=== PATIENT | male | born 1970 | race Caucasian/White ===

== ENCOUNTER 2019-11-07 15:27 | Emergency (ER) | payer OTHER, SELFPAY ==
[2019-11-07 15:37] VITALS: BP 153/70; PULSE 81; RESP 16; TEMP 36.5; O2SAT 99
--- NOTE | 2019-11-07 16:53 | ED.EAR ---
HPI - Ear Problem General Chief complaint: Ear Stated complaint: left side ear pain/pressure/jaw pain Time Seen by Provider: 11/07/19 16:53 Source: patient Mode of arrival: ambulatory Limitations: no limitations History of Present Illness HPI Narrative: Macario Pastrana is a 49-year-old male with a PMH of hypercholesterol [facility] for complaints of left ear pain and teeth pain along with pain behind and below his ear; it is existed for the last 2 days but is worsened as time progressed. States used 's lidocaine gargle last night and got relief Related Data Home Medications Medication Instructions Recorded Confirmed Fish Oil 11/07/19 Vitamin D3 11/07/19 simvastatin 11/07/19 Allergies Allergy/AdvReac Type Severity Reaction Status Date / Time Penicillins Allergy Severe HIVES Verified 11/07/19 16:55 Review of Systems Review of Systems: Narrative: CONSTITUTIONAL: Denies fever, chills, sweats. EYES: Denies visual changes, redness, discharge. ENT: Denies rhinorrhea, congestion, sore throat, L otalgia. Pain behind ear along TMJ into gums CARDIOVASCULAR: Denies chest pain, palpitations, edema. RESPIRATORY: Denies dyspnea, wheezing, cough GASTROINTESTINAL: Denies abdominal pain, nausea, vomiting, diarrhea. GENITOURINARY: Denies dysuria, hematuria, abnormal discharge SKIN: Denies rash or itching. NEUROLOGIC: Denies numbness, or focal weakness. PSYCHIATRIC: Denies anxiety or depression. [facility] Family History Family History Other Diabetes mellitus Heart disease High cholesterol Hypertension Social History Social History Smoking status: Never smoker Alcohol intake: current Exam Narrative: Exam Narrative: GENERAL: This is a well-nourished, well-developed patient, in moderate distress. HEAD: normocephalic, atraumatic. EYES: Sclera clear/white. Vision is grossly intact. EARS: External ears normal, auditory canal clear and left canal erythema with edema without drainage, Hearing grossly intact. NOSE: External nose normal without nasal discharge, nares without redness, no rhinorrhea. THROAT: Mucous membranes moist, posterior pharynx erythema NECK: Neck supple, submandibular tenderness on the left and along TMJ CARDIOVASCULAR: Regular rate and rhythm without murmurs, gallops, or rubs. RESPIRATORY: Clear to auscultation. Breath sounds equal bilaterally. No wheezes, rales, or rhonchi. GASTROINTESTINAL: Abdomen soft, SKIN: warm, intact with no suspicious lesions or rash, good texture and turgor. NEURO: awake, alert, and oriented to person, place and time. There were no obvious focal neurologic abnormalities. Steady gait EXTREMITIES: Normal range of motion. BACK: Nontender without deformity Course Course Emergency Course: Started on clindamycin and viscous lidocaine Follow-up with PCP Vital Signs Vital signs: Vital Signs Temperature 97.7 F 11/07/19 15:37 Pulse Rate 81 11/07/19 15:37 Respiratory Rate 16 11/07/19 15:37 Blood Pressure 153/70 H 11/07/19 15:37 Pulse Oximetry 99 11/07/19 15:37 Temperature 97.7 F 11/07/19 15:37 Pulse Rate 81 11/07/19 15:37 Respiratory Rate 16 11/07/19 15:37 Blood Pressure 153/70 H 11/07/19 15:37 Pulse Oximetry 99 11/07/19 15:37 Medical Decision Making Differential Diagnosis Differential Diagnosis: Otitis media versus dental caries versus TMJ Vital Signs Vital Signs: Vital Signs Temperature 97.7 F 11/07/19 15:37 Pulse Rate 81 11/07/19 15:37 Respiratory Rate 16 11/07/19 15:37 Blood Pressure 153/70 H 11/07/19 15:37 Pulse Oximetry 99 11/07/19 15:37 Temperature 97.7 F 11/07/19 15:37 Pulse Rate 81 11/07/19 15:37 Respiratory Rate 16 11/07/19 15:37 Blood Pressure 153/70 H 11/07/19 15:37 Pulse Oximetry 99 11/07/19 15:37 Discharge Plan Discharge Clinical Impression:
== END 2019-11-07 17:20 | disposition home or self-care (01) ==
PROVIDERS: Emergency Provider Nurse Practitioner; PCP Internal Medicine
DX: H92.02 Otalgia, left ear (principal); R59.9 Enlarged lymph nodes, unspecified; E78.00 Pure hypercholesterolemia, unspecified
CPT/HCPCS: 99213; G0463

== ENCOUNTER 2024-05-31 04:30 | Emergency (ER) | payer OTHER, SELFPAY ==
[2024-05-31] VITALS (12 sets, daily range): BP systolic 130–154; BP diastolic 85–105; PULSE 74–102; RESP 12–19; TEMP 36.8; O2SAT 94–100
--- NOTE | ~2024-05-31 | XR_ITS ---
CHEST RADIOGRAPH CLINICAL HISTORY: N/V/D . COMPARISON: None available TECHNIQUE: Single portable view of the chest. FINDINGS The cardiomediastinal silhouette is unremarkable. Hazy opacification of the left hemidiaphragm suggesting a small left-sided pleural effusion. The remainder the lungs are clear Visualized osseous structures and soft tissues are unremarkable. IMPRESSION: Small left-sided pleural effusion without focal infiltrate. Reviewed, dictated and finalized at location A. [facility]
--- NOTE | 2024-05-31 04:43 | ECG_ITS ---
Test Date: 2024-05-31 04:48:23 Measurements Intervals [place] Rate: 73 P: 27 WV: 183 QRS: -2 QRSD: 101 T: 41 QT: 368 QTc: 408 Interpretive Statements SINUS RHYTHM MINIMAL VOLTAGE CRITERIA FOR LVH, CONSIDER NORMAL VARIANT [MEETS CRITERIA IN ONE OF: R(aVL), S(V1), R(V5), R(V5/V6)+S(V1)] NONSPECIFIC T-WAVE ABNORMALITY No previous ECG available for comparison Electronically Signed On 05-31-2024 10:06:47 [employer] by Yuri Calderon M.D.
[2024-05-31 04:52] LABS: Glucose Point of Care 300 mg/dl (65-105)
[2024-05-31] MEDS: SODIUM CHLORIDE 0.9% IV 1,000 ML 999 ML IV CONT (04:56)
[2024-05-31] MEDS: ONDANSETRON INJ 4 MG/2 ML VIAL IV PUSH (04:56)
[2024-05-31 04:59] LABS: Basophils Absolute Auto 0.1 K/mm3 (0.0-0.1); Eosinophils Absolute Auto 0.1 K/mm3 (0-0.3); Eosinophils Percent Auto 1.8 % (0-4.4); Hemoglobin 16.3 g/dL (14.0-18.0); Immature Granulocyte Absolute 0.04 K/mm3 (0.00-0.031); Immature Granulocyte Percent A 0.6 % (0-0.5); Immature Platelet Fraction Pct 7.7 % (0.9-11.2); Lymphocytes Absolute Auto 1.83 K/mm3 (0.9-3.2); Lymphocytes Percent Auto 27.2 % (18.3-44.2); Mean Corpuscular HGB Conc 35.4 g/dl (32-36); Mean Corpuscular Hemoglobin 29.5 pg (26-34); Mean Corpuscular Volume 83.3 fl (80-100); Mean Platelet Volume 11.1 fl (7.4-10.4); Monocytes Absolute Auto 0.6 K/mm3 (0.1-0.6); Monocytes Percent Auto 8.3 % (2.6-8.5); Neutrophils Absolute Auto 4.1 K/mm3 (1.3-6.7); Neutrophils Percent Auto 61.1 % (45.5-73.1); Platelet Count Result 214 k/mm3 (150-375); Red Blood Count 5.52 M/mm3 (4.6-6.20); Red Cell Distribution Width 12.1 % (11.5-14.5); White Blood Count 6.7 K/mm3 (4.5-10.0)
[2024-05-31 05:06] LABS: Fractional Inspired Oxygen 21 %; HCO3 VBG 22.2 mEq/l (24.0-30.0); PCO2 VBG 36.8 mmHg (42.0-48.0); PO2 VBG 88.1 mmHg (35.0-45.0); pH VBG 7.398 (7.300-7.400)
[2024-05-31 05:07] LABS: Device ROOM AIR
[2024-05-31 05:10] LABS: Alanine Aminotransferase 41 U/L (6-50); Albumin Level 4.5 g/dL (3.5-5.1); Alkaline Phosphatase 77 U/L (38-126); Anion Gap 10 mmol/L (4-12); Aspartate Amino Transferase 41 U/L (17-59); Blood Urea Nitrogen 20 mg/dL (9-20); Calcium 9.5 mg/dL (8.4-10.2); Carbon Dioxide 24 mmol/L (22-30); Chloride 100 mmol/L (98-107); Estimated CRCL calculation 95 ml/min; Estimated Glomerular Filt Rate > 60; Glucose 303 mg/dL (65-110); Magnesium 1.7 mg/dL (1.6-2.3); Potassium 4.1 mmol/L (3.4-5.0); Sodium 134 mmol/L (137-145)
[2024-05-31 05:13] LABS: Beta-Hydroxybutyrate/Acetoacetate 0.56 mmol/L (0.02-0.27)
[2024-05-31 05:39] LABS: Influenza A QL RT-PCR Negative (Negative); Influenza B QL RT-PCR Negative (Negative); RSV RNA, RT-PCR Negative (Negative); SARS-CoV-2 RNA PCR Negative (Negative)
[2024-05-31 06:19] LABS: Troponin I 0.018 ng/mL (0.000-0.034)
--- NOTE | 2024-05-31 06:30 | ED_ITS ---
HPI - General Adult General Chief complaint: Recheck/Abnormal Lab/Rx <Kwadwo Bond MD - Last Filed: 05/31/24 06:48> Stated complaint: Recent dx of DM, vomiting <Kwadwo Bond MD - Last Filed: 05/31/24 06:48> Time Seen by Provider: 05/31/24 04:46 <Kwadwo Bond MD - Last Filed: 05/31/24 06:48> History of Present Illness HPI narrative: This is a 54-year-old male presenting ED with chief complaint of vomiting. Patient has recently been diagnosed with diabetes. He has had his metformin increased from once daily to 500 mg t.i.d. with meals. He has also been started on 20 units of Lantus. Patient started to feel nauseous at 2:30 a.m. this morning with a feeling of indigestion in his chest. He had an episode of vomiting. no diarrhea. He then came to the hospital for evaluation. He was concerned about DKA. Patient is very anxious. patient denies fevers chills, productive cough, abdominal pain shortness of breath or urinary symptoms. <Kwadwo Bond MD - Last Filed: 05/31/24 06:48> Related Data Home medications: Home Medications ?Medication ?Instructions ?Recorded ?Confirmed ?Last Taken ?Type Fish Oil 11/07/19 Unknown History Vitamin D3 11/07/19 Unknown History simvastatin 11/07/19 Unknown History <Kwadwo Bond MD - Last Filed: 05/31/24 06:48> Allergies/adverse reactions: Allergies Allergy/AdvReac Type Severity Reaction Status Date / Time Penicillins Allergy Severe HIVES Verified 11/07/19 16:55 <Kwadwo Bond MD - Last Filed: 05/31/24 06:48> Review of Systems 2 Review of Systems: All systems reviewed & are unremarkable except as noted in HPI and below <Clem Lang MD - Last Filed: 05/31/24 14:45> PMFSH Past Medical History Medical History: Medical History High cholesterol HTN (hypertension) <Kwadwo Bond MD - Last Filed: 05/31/24 06:48> Family History Family History: Family History Other Diabetes mellitus Heart disease High cholesterol Hypertension <Kwadwo Bond MD - Last Filed: 05/31/24 06:48> Social History Social History: Social History Smoking status: Never smoker Alcohol intake: current Gender identity (if verbalized by the patient): Male <Kwadwo Bond MD - Last Filed: 05/31/24 06:48> Exam 2 Narrative: APPEARANCE: No apparent distress. anxious. Head: atraumatic. EYES: EOMI, NOSE: Atraumatic NECK: Trachea midline RESPIRATORY: No increased rate of breathing CTAB CARDIOVASCULAR: RRR, no peripheral edema ABDOMINAL: Non-distended soft nontender no guarding rebound MUSCULOSKELETAl: No obvious deformities NEURO: Alert. Moving 4/4 extremities SKIN:: Warm, dry. Normal color PSYCHIATRIC: Normal affect <Kwadwo Bond MD - Last Filed: 05/31/24 06:48> Course Reevaluation(s) Reevaluation #1: Patient care was signed out to me by the overnight physician with a delta troponin pending. Patient was afebrile with no leukocytosis and hemoglobin of 16.3. Patient's repeat troponin was less than 0.012. No acute abnormalities on the patient's repeat EKG. Patient was instructed have close follow-up with his primary care physicians regarding better control over his blood sugar. All questions concerns were addressed. Patient was well-appearing at time of discharge. <Clem Lang MD - Last Filed: 05/31/24 14:45> Vital Signs Vital signs: Vital Signs Temperature 98.2 F 05/31/24 04:38 Pulse Rate 80 05/31/24 04:38 Respiratory Rate 19 05/31/24 04:38 Blood Pressure 144/105 H 05/31/24 04:38 Pulse Oximetry 94 05/31/24 04:38 Oxygen Delivery Room Air 05/31/24 04:38 Temperature 98.2 F 05/31/24 04:38 Pulse Rate 92 05/31/24 09:16 Respiratory Rate 12 05/31/24 09:16 Blood Pressure 130/86 05/31/24 09:16 Pulse Oximetry 99 05/31/24 09:16 Oxygen Delivery Room Air 05/31/24 04:38 <Kwadwo Bond MD - Last Filed: 05/31/24 06:48> Vital Signs Temperature 98.2 F 05/31/24 04:38 Pulse Rate 80 05/31/24 04:38 Respiratory Rate 19 05/31/24 04:38 Blood Pressure 144/105 H 05/31/24 04:38 Pulse Oximetry 94 05/31/24 04:38 Oxygen Delivery Room Air 05/31/24 04:38 Temperature 98.2 F 05/31/24 04:38 Pulse Rate 92 05/31/24 09:16 Respiratory Rate 12 05/31/24 09:16 Blood Pressure 130/86 05/31/24 09:16 Pulse Oximetry 99 05/31/24 09:16 Oxygen Delivery Room Air 05/31/24 04:38 <Clem Lang MD - Last Filed: 05/31/24 14:45> Medical Decision Making MDM Narrative Medical decision making narrative: -Course: 54-year-old male ED with chief complaint nausea, vomiting and indigestion. patient's GI discomfort and indigestion could be due to his increased metformin vs gastroenteritis vs anxiety. When he says indigestion he keeps pointing at his chest so I wanted to get a troponin/EKG to r/o ACS syndrome. Initial troponin was 0.018. no ischemic changes on initial EKG Second troponin is pending at time of sign-out. If ACS is ruled out patient can be discharged with antiemetics and Pepcid. Primary care follow-up. -DDX includes but is not limited to: Medication side effect, gastroenteritis, ACS -Co-morbidities complicating care: diabetes, high cholesterol -Independent interpretation of studies: labs and imaging initial troponin 0.018, 2nd is pending Independent EKG interpretation: Rhythm [sinus], Rate [73], [place] -[normal], [place] -[normal], QRS [narrow], QTC [normal], T waves -[negative for concerning inversions], ST Segments - [Negative for concerning elevations] Final interpretations: [Normal Sinus Rhythm] -Interventions:Valium, Maalox, normal saline -Shared decision making / Disposition:signed out. <Kwadwo Bond MD - Last Filed: 05/31/24 06:48> Vital Signs Vital Signs: Vital Signs Temperature 98.2 F 05/31/24 04:38 Pulse Rate 80 05/31/24 04:38 Respiratory Rate 19 05/31/24 04:38 Blood Pressure 144/105 H 05/31/24 04:38 Pulse Oximetry 94 05/31/24 04:38 Oxygen Delivery Room Air 05/31/24 04:38 Temperature 98.2 F 05/31/24 04:38 Pulse Rate 92 05/31/24 09:16 Respiratory Rate 12 05/31/24 09:16 Blood Pressure 130/86 05/31/24 09:16 Pulse Oximetry 99 05/31/24 09:16 Oxygen Delivery Room Air 05/31/24 04:38 <Kwadwo Bond MD - Last Filed: 05/31/24 06:48> Vital Signs Temperature 98.2 F 05/31/24 04:38 Pulse Rate 80 05/31/24 04:38 Respiratory Rate 19 05/31/24 04:38 Blood Pressure 144/105 H 05/31/24 04:38 Pulse Oximetry 94 05/31/24 04:38 Oxygen Delivery Room Air 05/31/24 04:38 Temperature 98.2 F 05/31/24 04:38 Pulse Rate 92 05/31/24 09:16 Respiratory Rate 12 05/31/24 09:16 Blood Pressure 130/86 05/31/24 09:16 Pulse Oximetry 99 05/31/24 09:16 Oxygen Delivery Room Air 05/31/24 04:38 <Clem Lang MD - Last Filed: 05/31/24 14:45> Lab Data Result diagrams: 05/31/24 04:50 05/31/24 04:50 <Kwadwo Bond MD - Last Filed: 05/31/24 06:48> Labs: Lab Results 05/31/24 05/31/24 05/31/24 Range/Units 04:37 04:49 04:50 WBC 6.7 (4.5-10.0) K/mm3 RBC 5.52 (4.6-6.20) M/mm3 Hgb 16.3 (14.0-18.0) g/dL Hct 46.0 (42.0-52.0) % MCV 83.3 (80-100) fl MCH 29.5 (26-34) pg MCHC 35.4 (32-36) g/dl RDW 12.1 (11.5-14.5) % Plt Count 214 (150-375) k/mm3 MPV 11.1 H (7.4-10.4) fl Immature Gran % (Auto) 0.6 H (0-0.5) % Neut % (Auto) 61.1 (45.5-73.1) % Lymph % (Auto) 27.2 (18.3-44.2) % [place] % (Auto) 8.3 (2.6-8.5) % Eos % (Auto) 1.8 (0-4.4) % Baso % (Auto) 1.0 (0.2-1.2) % Lymph # (Auto) 1.83 (0.9-3.2) K/mm3 [place] # (Auto) 0.6 (0.1-0.6) K/mm3 Eos # (Auto) 0.1 (0-0.3) K/mm3 Baso # (Auto) 0.1 (0.0-0.1) K/mm3 Abs Immat Gran (auto) 0.04 H (0.00-0.031) K/mm3 Absolute Neuts (auto) 4.1 (1.3-6.7) K/mm3 Absolute Nucleated RBC 0.000 (0.0-0.012) K/mm3 Nucleated RBC % 0.0 (0.0-0.2) % % Immature Plt Fraction 7.7 (0.9-11.2) % Sodium 134 L (137-145) mmol/L Potassium 4.1 (3.4-5.0) mmol/L Chloride 100 (98-107) mmol/L Carbon Dioxide 24 (22-30) mmol/L Anion Gap 10 (4-12) mmol/L BUN 20 (9-20) mg/dL Creatinine 0.86 (0.7-1.3) mg/dL Estim Creat Clear Calc 95 ml/min Estimated GFR > 60 (59 - ) Glucose 303 H (65-110) mg/dL POC Capillary Glucose 300 H (65-105) mg/dl Calcium 9.5 (8.4-10.2) mg/dL Phosphorus 3.0 (2.5-4.5) mg/dL Magnesium 1.7 (1.6-2.3) mg/dL Total Bilirubin 1.0 (0.2-1.3) mg/dL AST 41 (17-59) U/L ALT 41 (6-50) U/L Alkaline Phosphatase 77 (38-126) U/L Troponin I 0.018 (0.000-0.034) ng/mL Total Protein 7.0 (6.3-8.2) g/dL Albumin 4.5 (3.5-5.1) g/dL Beta-Hydroxybutyrate/Acetoacetate 0.56 H (0.02-0.27) mmol/L Urine Color (Yellow) Urine Appearance (Clear) Urine pH (5.0-9.0) Ur Specific [place] (1.001-1.035) Urine Protein (Negative) mg/dL Urine Glucose (UA) (Negative) mg/dL Urine Ketones (Negative) mg/dL Ur Blood (Man) (Negative) Urine Nitrate (Negative) Urine Bilirubin (Negative) Urine Urobilinogen (<2.0) mg/dL Leukocyte Esterase Rfl (Negative) ADRIÁN/UL Urine RBC (0-2) /hpf Urine WBC (0-3) /hpf Ur Squamous Epith Cells (Few) /hpf Urine Bacteria /hpf Urine Casts Influenza A (RT-PCR) (Negative) Influenza B (RT-PCR) (Negative) RSV (RT-PCR) (Negative) SARS-CoV-2 RNA (RT-PCR) (Negative) 05/31/24 05/31/24 05/31/24 Range/Units 04:55 07:25 07:49 WBC (4.5-10.0) K/mm3 RBC (4.6-6.20) M/mm3 Hgb (14.0-18.0) g/dL Hct (42.0-52.0) % MCV (80-100) fl MCH (26-34) pg MCHC (32-36) g/dl RDW (11.5-14.5) % Plt Count (150-375) k/mm3 MPV (7.4-10.4) fl Immature Gran % (Auto) (0-0.5) % Neut % (Auto) (45.5-73.1) % Lymph % (Auto) (18.3-44.2) % [place] % (Auto) (2.6-8.5) % Eos % (Auto) (0-4.4) % Baso % (Auto) (0.2-1.2) % Lymph # (Auto) (0.9-3.2) K/mm3 [place] # (Auto) (0.1-0.6) K/mm3 Eos # (Auto) (0-0.3) K/mm3 Baso # (Auto) (0.0-0.1) K/mm3 Abs Immat Gran (auto) (0.00-0.031) K/mm3 Absolute Neuts (auto) (1.3-6.7) K/mm3 Absolute Nucleated RBC (0.0-0.012) K/mm3 Nucleated RBC % (0.0-0.2) % % Immature Plt Fraction (0.9-11.2) % Sodium (137-145) mmol/L Potassium (3.4-5.0) mmol/L Chloride (98-107) mmol/L Carbon Dioxide (22-30) mmol/L Anion Gap (4-12) mmol/L BUN (9-20) mg/dL Creatinine (0.7-1.3) mg/dL Estim Creat Clear Calc ml/min Estimated GFR (59 - ) Glucose (65-110) mg/dL POC Capillary Glucose (65-105) mg/dl Calcium (8.4-10.2) mg/dL Phosphorus (2.5-4.5) mg/dL Magnesium (1.6-2.3) mg/dL Total Bilirubin (0.2-1.3) mg/dL AST (17-59) U/L ALT (6-50) U/L Alkaline Phosphatase (38-126) U/L Troponin I < 0.012 D (0.000-0.034) ng/mL Total Protein (6.3-8.2) g/dL Albumin (3.5-5.1) g/dL Beta-Hydroxybutyrate/Acetoacetate (0.02-0.27) mmol/L Urine Color Yellow (Yellow) Urine Appearance Clear (Clear) Urine pH 5.5 (5.0-9.0) Ur Specific [place] 1.027 (1.001-1.035) Urine Protein Negative (Negative) mg/dL Urine Glucose (UA) 3+ H (Negative) mg/dL Urine Ketones 1+ H (Negative) mg/dL Ur Blood (Man) Negative (Negative) Urine Nitrate Negative (Negative) Urine Bilirubin Negative (Negative) Urine Urobilinogen 0.2 (<2.0) mg/dL Leukocyte Esterase Rfl Negative (Negative) ADRIÁN/UL Urine RBC 0-2 (0-2) /hpf Urine WBC 0-5 (0-3) /hpf Ur Squamous Epith Cells None seen (Few) /hpf Urine Bacteria None seen /hpf Urine Casts 0-2 Influenza A (RT-PCR) Negative (Negative) Influenza B (RT-PCR) Negative (Negative) RSV (RT-PCR) Negative (Negative) SARS-CoV-2 RNA (RT-PCR) Negative (Negative) <Kwadwo Bond MD - Last Filed: 05/31/24 06:48> Lab Results 05/31/24 05/31/24 05/31/24 Range/Units 04:37 04:49 04:50 WBC 6.7 (4.5-10.0) K/mm3 RBC 5.52 (4.6-6.20) M/mm3 Hgb 16.3 (14.0-18.0) g/dL Hct 46.0 (42.0-52.0) % MCV 83.3 (80-100) fl MCH 29.5 (26-34) pg MCHC 35.4 (32-36) g/dl RDW 12.1 (11.5-14.5) % Plt Count 214 (150-375) k/mm3 MPV 11.1 H (7.4-10.4) fl Immature Gran % (Auto) 0.6 H (0-0.5) % Neut % (Auto) 61.1 (45.5-73.1) % Lymph % (Auto) 27.2 (18.3-44.2) % [place] % (Auto) 8.3 (2.6-8.5) % Eos % (Auto) 1.8 (0-4.4) % Baso % (Auto) 1.0 (0.2-1.2) % Lymph # (Auto) 1.83 (0.9-3.2) K/mm3 [place] # (Auto) 0.6 (0.1-0.6) K/mm3 Eos # (Auto) 0.1 (0-0.3) K/mm3 Baso # (Auto) 0.1 (0.0-0.1) K/mm3 Abs Immat Gran (auto) 0.04 H (0.00-0.031) K/mm3 Absolute Neuts (auto) 4.1 (1.3-6.7) K/mm3 Absolute Nucleated RBC 0.000 (0.0-0.012) K/mm3 Nucleated RBC % 0.0 (0.0-0.2) % % Immature Plt Fraction 7.7 (0.9-11.2) % Sodium 134 L (137-145) mmol/L Potassium 4.1 (3.4-5.0) mmol/L Chloride 100 (98-107) mmol/L Carbon Dioxide 24 (22-30) mmol/L Anion Gap 10 (4-12) mmol/L BUN 20 (9-20) mg/dL Creatinine 0.86 (0.7-1.3) mg/dL Estim Creat Clear Calc 95 ml/min Estimated GFR > 60 (59 - ) Glucose 303 H (65-110) mg/dL POC Capillary Glucose 300 H (65-105) mg/dl Calcium 9.5 (8.4-10.2) mg/dL Phosphorus 3.0 (2.5-4.5) mg/dL Magnesium 1.7 (1.6-2.3) mg/dL Total Bilirubin 1.0 (0.2-1.3) mg/dL AST 41 (17-59) U/L ALT 41 (6-50) U/L Alkaline Phosphatase 77 (38-126) U/L Troponin I 0.018 (0.000-0.034) ng/mL Total Protein 7.0 (6.3-8.2) g/dL Albumin 4.5 (3.5-5.1) g/dL Beta-Hydroxybutyrate/Acetoacetate 0.56 H (0.02-0.27) mmol/L Urine Color (Yellow) Urine Appearance (Clear) Urine pH (5.0-9.0) Ur Specific [place] (1.001-1.035) Urine Protein (Negative) mg/dL Urine Glucose (UA) (Negative) mg/dL Urine Ketones (Negative) mg/dL Ur Blood (Man) (Negative) Urine Nitrate (Negative) Urine Bilirubin (Negative) Urine Urobilinogen (<2.0) mg/dL Leukocyte Esterase Rfl (Negative) ADRIÁN/UL Urine RBC (0-2) /hpf Urine WBC (0-3) /hpf Ur Squamous Epith Cells (Few) /hpf Urine Bacteria /hpf Urine Casts Influenza A (RT-PCR) (Negative) Influenza B (RT-PCR) (Negative) RSV (RT-PCR) (Negative) SARS-CoV-2 RNA (RT-PCR) (Negative) 05/31/24 05/31/24 05/31/24 Range/Units 04:55 07:25 07:49 WBC (4.5-10.0) K/mm3 RBC (4.6-6.20) M/mm3 Hgb (14.0-18.0) g/dL Hct (42.0-52.0) % MCV (80-100) fl MCH (26-34) pg MCHC (32-36) g/dl RDW (11.5-14.5) % Plt Count (150-375) k/mm3 MPV (7.4-10.4) fl Immature Gran % (Auto) (0-0.5) % Neut % (Auto) (45.5-73.1) % Lymph % (Auto) (18.3-44.2) % [place] % (Auto) (2.6-8.5) % Eos % (Auto) (0-4.4) % Baso % (Auto) (0.2-1.2) % Lymph # (Auto) (0.9-3.2) K/mm3 [place] # (Auto) (0.1-0.6) K/mm3 Eos # (Auto) (0-0.3) K/mm3 Baso # (Auto) (0.0-0.1) K/mm3 Abs Immat Gran (auto) (0.00-0.031) K/mm3 Absolute Neuts (auto) (1.3-6.7) K/mm3 Absolute Nucleated RBC (0.0-0.012) K/mm3 Nucleated RBC % (0.0-0.2) % % Immature Plt Fraction (0.9-11.2) % Sodium (137-145) mmol/L Potassium (3.4-5.0) mmol/L Chloride (98-107) mmol/L Carbon Dioxide (22-30) mmol/L Anion Gap (4-12) mmol/L BUN (9-20) mg/dL Creatinine (0.7-1.3) mg/dL Estim Creat Clear Calc ml/min Estimated GFR (59 - ) Glucose (65-110) mg/dL POC Capillary Glucose (65-105) mg/dl Calcium (8.4-10.2) mg/dL Phosphorus (2.5-4.5) mg/dL Magnesium (1.6-2.3) mg/dL Total Bilirubin (0.2-1.3) mg/dL AST (17-59) U/L ALT (6-50) U/L Alkaline Phosphatase (38-126) U/L Troponin I < 0.012 D (0.000-0.034) ng/mL Total Protein (6.3-8.2) g/dL Albumin (3.5-5.1) g/dL Beta-Hydroxybutyrate/Acetoacetate (0.02-0.27) mmol/L Urine Color Yellow (Yellow) Urine Appearance Clear (Clear) Urine pH 5.5 (5.0-9.0) Ur Specific [place] 1.027 (1.001-1.035) Urine Protein Negative (Negative) mg/dL Urine Glucose (UA) 3+ H (Negative) mg/dL Urine Ketones 1+ H (Negative) mg/dL Ur Blood (Man) Negative (Negative) Urine Nitrate Negative (Negative) Urine Bilirubin Negative (Negative) Urine Urobilinogen 0.2 (<2.0) mg/dL Leukocyte Esterase Rfl Negative (Negative) ADRIÁN/UL Urine RBC 0-2 (0-2) /hpf Urine WBC 0-5 (0-3) /hpf Ur Squamous Epith Cells None seen (Few) /hpf Urine Bacteria None seen /hpf Urine Casts 0-2 Influenza A (RT-PCR) Negative (Negative) Influenza B (RT-PCR) Negative (Negative) RSV (RT-PCR) Negative (Negative) SARS-CoV-2 RNA (RT-PCR) Negative (Negative) <Clem Lang MD - Last Filed: 05/31/24 14:45> ABG Data ABG results: 05/31/24 04:50 VBG pH 7.398 VBG pCO2 36.8 L VBG pO2 88.1 H VBG HCO3 22.2 L O2 Delivery Device Room air O2 Liters/Min Not Reportable FiO2 21 <Kwadwo Bond MD - Last Filed: 05/31/24 06:48> 05/31/24 04:50 VBG pH 7.398 VBG pCO2 36.8 L VBG pO2 88.1 H VBG HCO3 22.2 L O2 Delivery Device Room air O2 Liters/Min Not Reportable FiO2 21 <Clem Lang MD - Last Filed: 05/31/24 14:45> Discharge Plan Discharge Clinical Impression: Nausea & vomiting, Indigestion, Anxiety <Kwadwo Bond MD - Last Filed: 05/31/24 06:48> Patient Disposition: Home, Self-Care <Kwadwo Bond MD - Last Filed: 05/31/24 06:48> Condition: Stable <Kwadwo Bond MD - Last Filed: 05/31/24 06:48> Instructions: Antibiotic Form, Acute Nausea and Vomiting (DC) <Kwadwo Bond MD - Last Filed: 05/31/24 06:48> Additional Instructions: You were seen in the emergency department for nausea and vomiting. Please use Zofran and Pepcid for nausea. Please follow-up with your primary care physician to discuss your recent diagnosis of diabetes. You can return to the ED at any time he develops severe abdominal pain, intractable nausea vomiting or any new or worsening symptoms. <Kwadwo Bond MD - Last Filed: 05/31/24 06:48> Patient Language: German <Kwadwo Bond MD - Last Filed: 05/31/24 06:48> Prescriptions: New ondansetron 4 mg tablet,disintegrating 4 mg PO Q8H PRN (Reason: nausea and vomiting) Qty: 30 0RF famotidine [Pepcid] 20 mg tablet 20 mg PO BID 42 Days Qty: 84 0RF No Action Fish Oil Vitamin D3 simvastatin Lidocaine Viscous 2 % solution 1 applic MUCOUS MEM TID PRN (Reason: pain) Qty: 100 0RF clindamycin HCl 300 mg capsule 300 mg PO Q8H Qty: 21 0RF <Kwadwo Bond MD - Last Filed: 05/31/24 06:48> Follow-up/Referrals: Dorita,John Coto MD [Primary Care Provider] - <Kwadwo Bond MD - Last Filed: 05/31/24 06:48> Quality HEART score for chest pain patients History: slightly suspicious <Clem Lang MD - Last Filed: 05/31/24 14:45> ECG: normal <Clme Lang MD - Last Filed: 05/31/24 14:45> Age: > 45 and < 65 years <Clem Lang MD - Last Filed: 05/31/24 14:45> Risk factors: 1 or 2 risk factors <Clem Lang MD - Last Filed: 05/31/24 14:45> Troponin: < or = to 1x normal limit <Clem Lang MD - Last Filed: 05/31/24 14:45> Heart score: 2 <Clem Lang MD - Last Filed: 05/31/24 14:45>
[2024-05-31] MEDS: MAG HYDROX/AL HYDROX/SIMETH 30 ML UDC PO (06:50)
--- NOTE | 2024-05-31 06:56 | PC.NURSE ---
pt refused valium medication at this time. this rn educated patient on the benefits of recieving medication. pt refused medication at this time.
[2024-05-31 07:37] LABS: Bacteria Urine None Seen /hpf; Non Pathogenic Casts 0-2; RBC Urine 0-2 /hpf (0-2); Squamous Epithelial Cell Urine None Seen /hpf (Few); WBC Urine 0-5 /hpf (0-3)
[2024-05-31 07:42] LABS: Add Urine Microscopic? NO; Appearance Urine Clear (Clear); Bilirubin Urine Negative (Negative); Blood Urine Negative (Negative); Color Urine Yellow (Yellow); Glucose Urine UA 3+ mg/dL (Negative); Ketones Urine 1+ mg/dL (Negative); Leukocyte Esterase Ur Negative LEU/UL (Negative); Nitrate Urine Negative (Negative); Protein Urine Negative (Negative); Specific Grav Ur 1.027 (1.001-1.035); Urobilinogen Urine 0.2 mg/dL (<2.0); pH Urine 5.5 (5.0-9.0)
--- NOTE | 2024-05-31 07:51 | ECG_ITS ---
Test Date: 2024-05-31 04:49:13 Measurements Intervals [place] Rate: 74 P: 24 MS: 186 QRS: -3 QRSD: 96 T: 33 QT: 371 QTc: 412 Interpretive Statements SINUS RHYTHM MINIMAL VOLTAGE CRITERIA FOR LVH, CONSIDER NORMAL VARIANT [MEETS CRITERIA IN ONE OF: R(aVL), S(V1), R(V5), R(V5/V6)+S(V1)] NONSPECIFIC T-WAVE ABNORMALITY Compared to ECG 05/31/2024 04:48:23 No significant changes Electronically Signed On 05-31-2024 10:06:51 COMPLETIONS ENGINEER by Yuri Calderon M.D.
--- NOTE | 2024-05-31 07:58 | ECG_ITS ---
Test Date: 2024-05-31 07:58:41 Measurements Intervals [place] Rate: 93 P: 22 IA: 179 QRS: -10 QRSD: 98 T: 61 QT: 335 QTc: 417 Interpretive Statements SINUS RHYTHM MODERATE VOLTAGE CRITERIA FOR LVH, CONSIDER NORMAL VARIANT [MEETS CRITERIA IN ONE OF: R(aVL), S(V1), R(V5), R(V5/V6)+S(V1)] NONSPECIFIC T-WAVE ABNORMALITY Compared to ECG 05/31/2024 04:49:13 No significant changes Electronically Signed On 06-01-2024 18:15:10 FOOD CRITIC by Mami Sales M.D.
[2024-05-31 08:17] LABS: Troponin I < 0.012 ng/mL (0.000-0.034)
--- OUTSIDE RECORDS SUMMARY | 2024-06-04 09:50 | XMS_ITS ---
Author Organization [facility] Address [address] [place] [address] Phone Care Team Providers Care Stove Mechanic Name Role Phone Unavailable Unavailable Unavailable Plan of Treatment No Plan of Treatment Recorded Assessments Includes: Assessments for all patient encounters No Assessments Recorded Medical Equipment - Implanted Devices Includes: Current and historical Devices No Medical Equipment Recorded Medications Administered Includes: Administered Medications in patient's chart No Administered Medications Recorded Results Includes: Results from 06/04/2023 through 06/04/2024 No Results Recorded For Specified Dates History of Present Illness History of Present Illness not supported for this document type No History of Present Illness Recorded Social History No Social History Recorded - Smoking Status Unknown Medical History Includes: Medical History in patient's chart No Medical History Recorded Family History Includes: Family History in patient's chart No Family History Recorded Review of Systems Review of Systems not supported for this document type No Review of Systems Recorded Mental Status No Mental Status Recorded Functional Status No Functional Status Recorded Physical Exam Physical Exam not supported for this document type No Physical Exam Recorded Clinical Notes Includes: Signed Clinical Notes starting from 06/01/2022 No Clinical Notes Recorded
--- OUTSIDE RECORDS SUMMARY | 2024-06-04 09:52 | XMS_ITS | Encounter Summary ---
Author Organization [facility] Address [address] [place] [address] Care Team Providers Care Energy Sales Consultant Name Role Phone John Kevin MD Primary Care Provider [phone] Encounter Details Date Type Department Care Team (Latest Contact Info) Description 09/01/2003 Outpatient Historical [facility] Aaron Wilkinson MD [address] [place] [address] MUSCLE WEAKNESS (Primary Dx) Social History Tobacco Use Types Packs/Day Years Used Date Smoking Tobacco: Never Assessed Sex and Gender Information Value Date Recorded Sex Assigned at Not on file Legal Sex Male 2:58 AM SAP BW DEVELOPER Gender Identity Not on file Sexual Orientation Not on file documented as of this encounter Plan of Treatment Upcoming Encounters Date Type Department Care Team (Late st Contact Info) Description 07/08/2024 9:00 AM SAP BW DEVELOPER Office Visit [facility] Diabetes Care [address] [place] [address] [facility] [address] [facility] [address] [place] [address] 07/20/2024 1:20 PM CDT Office Visit [facility] Primary Care [facility] [address] [place] [address] [address] [place] [phone] John Kevin MD [address] [facility] [address] [place] [address] 10/01/2024 10:00 AM CDT Office Visit [facility] Primary Care [facility] [address] [place] [address] [address] [place] [address] John Kevin MD [address] [place] [address] [address] [place] [phone] documented as of this encounter Visit Diagnoses Diagnosis Muscle weakness (generalized)- Primary documented in this encounter Care Teams Energy Sales Consultant Relationship Specialty Start Date End Date John Kevin MD [address] [place] [address] [place] [address] PCP - General 08/18/03 documented as of this encounter
--- OUTSIDE RECORDS SUMMARY | 2024-06-04 09:52 | XMS_ITS | Encounter Summary ---
Author Organization [facility] Address 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 Diabetes Care [address] [place] [address] [facility] [address] [facility] [address] [place] [address] 07/20/2024 1:20 PM CDT Office Visit [facility] Primary Care [facility] [address] [place] [address] [address] [place] [address] John Kevin MD [address] [facility] [address] [place] [phone] 10/01/2024 10:00 AM CDT Office Visit [facility] Primary Care [facility] [address] [place] [address] [address] [place] [phone] John Kevin MD [address] [place] [address] [address] [place] [phone] documented as of this encounter Visit Diagnoses Not on filedocumented in this encounter Care Teams Road Train Driver Relationship Specialty Start Date End Date John Kevin MD [address] [place] [address] [address] [place] [phone] PCP - General 08/18/03 documented as of this encounter
--- OUTSIDE RECORDS SUMMARY | 2024-06-04 09:52 | XMS_ITS | Encounter Summary ---
Author Organization [facility] Address [address] [place] [address] Care Team Providers Care Telephonic Nurse Name Role Phone John Kevin MD Primary Care Provider [phone] Encounter Details Date Type Department Care Team (Late Contact Info) Description 05/21/2005 Outpatient Historical [facility] Internal Medicine [address] [address] John Kevin MD [address] [place] [address] [address] [place] [address] Social History Tobacco Use Types Packs/Day Years Used Date Smoking Tobacco: Never Assessed Sex and Gender Information Value Date Recorded Sex Assigned at Not on file Legal Sex Male 2:58 AM RECEPTIONIST AIRLINE LOUNGE Gender Identity Not on file Sexual Orientation Not on file documented as of this encounter Last Filed Vital Signs Vital Sign Reading Time Taken Comments Blood Pressure 120/70 05/21/2005 11:30 AM RECEPTIONIST AIRLINE LOUNGE Pulse - - Temperature 37.1 ??C (98.8 ??F) 05/21/2005 11:[address] Respiratory Rate - - Oxygen Saturation - - Inhaled Oxygen Concentration - - Weight - - Height - - Body Mass Index - - documented in this encounter Plan of Treatment Upcoming Encounters Date Type Department Care Team (Late Contact Info) Description 07/08/2024 9:00 AM RECEPTIONIST AIRLINE LOUNGE Office Visit [facility] Diabetes Care [facility] [address] [facility] [address] [place] [address] Lizett De La Rosa FNP [address] [facility] [address] [place] [address] 07/20/2024 1:20 PM CDT Office Visit [address] [place] [address] [place] [address] John Kevin MD [address] [place] [address] [place] [phone] 10/01/2024 10:00 AM CDT Office Visit [address] [place] [phone] John Kevin MD [address] [place] [address] [address] [place] [phone] documented as of this encounter Visit Diagnoses Not on filedocumented in this encounter Care Teams Telephonic Nurse Relationship Specialty Start Date End Date John Kevin MD [address] [place] [address] [place] [phone] PCP - General 08/18/03 documented as of this encounter
--- OUTSIDE RECORDS SUMMARY | 2024-06-04 09:52 | XMS_ITS | Clinical Summary ---
Author Organization [facility] Address [address] [place] [address] Phone Care Team Providers Care Electric Meter Tester Helper Name Role Phone John Kevin MD Primary Care Provider [phone] Allergies Active Allergy Reactions Criticality Noted Date Comments Penicillins Hives 11/12/2019 Medications HYDROcodone-yves taminophen (NORCO) 5-325 MG TabletIndicatio ns:Infected dental caries Take 1 Tablet by mouth every 8 hours as needed for Moderate or more severe pain. 12 Tablet 05/14/2021 Active Social History Tobacco Use Types Packs/Day Years Used Date Smoking Tobacco: Never Smokeless Tobacco: Never Alcohol Use Standard Drinks/Week Comments Never 0 (1 standard drink = 0.6 oz pur e alcohol) AUDIT-C Answer Date Recorded Q1: How often do you have a drink containing alc ohol? Never 11/12/2019 Average Number of Drinks Not on file 020 Frequency of Binge Drinking Not on file 06/2019 Sex and Gender Information Value Date Recorded Sex Assigned at Not on file Legal Sex Male 6:42 PM CDT Gender Identity Not on file Sexual Orientation Not on file Last Filed Vital Signs Vital Sign Reading Time Taken Comments Blood Pressure 159/109 05/14/2021 2:29 PM TIMEKEEPING SUPERVISOR Pulse 87 05/14/2021 2:27 PM TIMEKEEPING SUPERVISOR Temperature 36.6 ??C (97.9 ??F) 05/14/2021 2:27 PM CS T Respiratory Rate 18 05/14/2021 2:27 PM TIMEKEEPING SUPERVISOR Oxygen Saturation 97% 05/14/2021 2:27 PM TIMEKEEPING SUPERVISOR Inhaled Oxygen Concentration - - Weight 99.8 kg (220 lb) 05/14/2021 2:27 PM TIMEKEEPING SUPERVISOR Height 182.9 cm (6') 05/14/2021 2:27 PM TIMEKEEPING SUPERVISOR Body Mass Index 29.84 05/14/2021 2:27 PM TIMEKEEPING SUPERVISOR Plan of Treatment Not on file Care Teams Electric Meter Tester Helper Relationship Specialty Start Date End Date John Kevin MD [address] [place] [address] PCP - General 11/12/19
--- OUTSIDE RECORDS SUMMARY | 2024-06-04 09:52 | XMS_ITS | Clinical Summary ---
Author Organization [facility] Address [address] [place] [address] Care Team Providers Care Filter Tender Name Role Phone John Kevin MD Primary Care Provider [phone] Allergies Active Allergy Reactions Criticality Noted Date Comments Penicillins Hives High 06/05/2019 Medications pramipexole (MIRAPEX) 0.25 mg tablet TAKE 1 TABLET(0.25 MG) BY MOUTH DAILY AT BEDTIME 30 Tablet 2 020 Active MAGNESIUM ORAL Take by mouth. Active mag hydrox/aluminum hyd/simeth (ANTACID ANTI-GAS ORAL) Take by mouth. Activ e oxymetazoline (AFRIN) 0.05 % Solomon, Non-Aerosol Administer 2 Sprays in each nostril 2 times daily. Up to 3 days Active cholecalciferol, Vitamin D3, (VITAMIN D3) 25 mcg (1,000 unit) Capsule Take 2,000 Units by mouth daily. Active omega-3 acid ethyl esters (Lovaza) 1 gram Capsule Take 2 Capsules (2 Grams) by mouth 2 times daily with meals. 360 Capsule 3 023 Active ondansetron (ZOFRAN ODT) 4 mg Tablet, Rapid Dissolve Take 1 Tablet (4 mg) by mouth every 8 hours as needed for Nausea/Emesis. Dissolve tablet on top of tongue, then swallow with saliva. 8 Tablet 024 Active levothyroxine 25 mcg tablet TAKE 1 TABLET DAILY IN THE MORNING 90 Tablet 3 024 Active semaglutide (Ozempic) 0.25 mg or 0.5 mg (2 mg/3 mL) Pen Injector Lot: [id number] ex: 11/09/2024 qty: 1 3 mL 023 Active Additional Information Patient not taking.Reported on 05/29/2024 atorvastatin (LIPITOR) 10 mg tabletIndications :Mixed hyperlipidemia TAKE 1 TABLET IN THE EVENING 90 Tablet 3 024 Active icosapent ethyL (VASCEPA) 1 gram CapsuleIndication s:Mixed hyperlipidemia TAKE 2 CAPSULES (2 GRAMS) TWO TIMES DAILY WITH MEALS 360 Capsule 3 024 Active buPROPion HCL (WELLBUTRIN XL) 300 mg Extended Release 24 hour tablet TAKE 1 TABLET DAILY IN THE MORNING 90 Tablet 3 024 Active celecoxib (CeleBREX) 200 mg capsule TAKE 1 CAPSULE(200 MG) BY MOUTH TWICE DAILY 60 Capsule 3 024 Active pantoprazole (Protonix) 40 mg Tablet, Delayed Release (E.C.) Take 1 Tablet (40 mg) by mouth daily. 100 Tablet 3 024 Active Insulin Carlisle, Disposable, (BD Ultra-Fine Short Pen Needle) 31 gauge x 5/16 Needle For use with insulin daily 30 Each 6 025 Active semaglutide (Ozempic) 0.25 mg or 0.5 mg (2 mg/3 mL) Pen InjectorIndicatio ns:Type 2 diabetes mellitus with hyperglycemia, with long-term current use of insulin ([facility]) Inject 0.25 mg by subcutaneous injection every 7 days. 9 mL 3 025 Active metFORMIN (GLUCOPHAGE) 500 mg tablet Take 1 Tablet (500 mg) by mouth 3 times daily. 270 Tablet 3 025 Active insulin glargine-yfgn (Semglee,insulin glarg-yfgn,Pen) 100 unit/mL pen syringe Inject 20 Units by subcutaneous injection daily. 15 mL 3 025 Active metFORMIN (GLUCOPHAGE) 500 mg tablet take 1 tablet daily 90 Tablet 3 024 2024 Discontinued(R eorder) insulin glargine (Lantus Solostar U-100 Insulin) 100 unit/mL pen syringe Inject 20 Units by subcutaneous injection daily. 15 mL 3 025 2024 Discontinued semaglutide (Ozempic) 0.25 mg or 0.5 mg (2 mg/3 mL) Pen InjectorIndicatio ns:Type 2 diabetes mellitus with hyperglycemia, with long-term current use of insulin ([facility]) Inject 0.25 mg by subcutaneous injection every 7 days. 9 mL 3 025 2024 Discontinued(R eorder) Active Problems Patient Care Coordination No te Formatting of this note migh t be different from the original. Prev visit 05/29/24 Problem Noted Date Diagnosed Date Prediabetes 05/27/2019 Mixed hyperlipidemia 02/19/2018 Abnormal glucose 02/19/2018 Restless legs syndrome (RLS) 04/16/2016 Patellar tendonitis 11/29/2011 Impotence of organic origin 03/18/2007 Anxiety state 08/25/2003 Chronic rhinitis 05/20/2003 Resolved Problems Problem Noted Date Diagnosed Date Resolved Date Gallstones 06/05/2019 10/15/2019 [place] disease 03/18/2007 07/23/19 09 Backache, unspecified 03/18/20072011 Rash and other nonspecific skin eruption 03/18/2007 11/29/2011 Acute bronchitis 05/21/2005 11/29/2011 ACUTE SINUSITIS NOS 01/09/2005 11/29/19 12 Elevated BP 10/04/2003 02/17/2018 Nocturia 08/16/2003 11/29/2011 Unspecified hereditary and i diopathic peripheral neuropathy 07/20/2003 11/29/2011 ACUTE NONSUP OTITIS MED NOS 05/20/2003 11/29/2011 Encounters Date Type Department Care Team Description 06/03/2024 Orders Only [place] [address] [place] [address] Provider, Abstract 05/30/2024 Orders Only [place] [address] [place] [address] John Kevin MD Type 2 diabetes mellitus with hyperglycemia, with long-term current use of insulin ([facility]) 05/29/2024 9:40 AM MARKETING PROPOSAL SPECIALIST Office Visit [place] [address] [place] [address] John Kevin MD Mixed hyperlipidemia (Primary Dx); Declined influenza vaccine; Vitamin B12 deficiency (non anemic); Esophagitis; Type 2 diabetes mellitus with hyperglycemia, with long-term current use of insulin ([facility]); Vitamin D deficiency 05/26/2024 External Device Data [facility] ABSTRACTION Provider, Abstract 04/28/2024 External Device Data [place] Provider, Abstract 04/15/2024 [facility] [address] [place] [address] John Kevin MD 04/03/2024 [facility] [address] [place] [address] John Kevin MD from Last 3 Months Immunizations Immunization Administration Dates Next Due (ADACEL/BOOSTRIX)(10 YR UP) TDAP VACCINE, 0.5ML, IM 02/17/2018,07/22/2008 (PNEUMOVAX 23)(50 YRS UP) PN EUMOCOCCAL POLYSACCHARIDE (PPV23) 0.5 ML, IM 07/15/2019,04/20/2003 Family History Medical History Relation Name Comments Diabetes Father Healthy Father Diabetes Maternal Grandfather Lung Cancer Maternal Grandmother Healthy Mother Breast Cancer Paternal Grandmother Colon Cancer Paternal Grandmother Diabetes Paternal Grandmother Cancer Neg Hx Ovarian Cancer Neg Hx Relation Name Status Comments Brother 1 Alive Brother 2 Alive Daughter 1 Alive Daughter 2 Alive Father Alive Maternal Grandfather Maternal Grandmother Mother Alive Paternal Grandfather Paternal Grandmother Alive Sister Other Social History Tobacco Use Types Packs/Day Years Used Date Smoking Tobacco: Never Passive Smoke Exposure: Never Smokeless Tobacco: Never Tobacco Cessation:Counseling Given: No Alcohol Use Standard Drinks/Week Comments Yes 0 (1 standard drink = 0.6 oz pur e alcohol) occasionally Feeling Safe Answer Date Recorded Are you in a relationship wi th someone who hurts you emotionally and/or physically? No 11/01/2023 Sex and Gender Information Value Date Recorded Sex Assigned at Not on file Legal Sex Male 2:58 AM MARKETING PROPOSAL SPECIALIST Gender Identity Not on file Sexual Orientation Not on file Last Filed Vital Signs Vital Sign Reading Time Taken Comments Blood Pressure 135/89 05/29/2024 9:30 AM MARKETING PROPOSAL SPECIALIST Pulse 83 05/29/2024 9:30 AM MARKETING PROPOSAL SPECIALIST Temperature 36.1 ??C (97 ??F) 11/01/2023 11:41 AM CDT Respiratory Rate 14 11/01/2023 11:56 AM CDT Oxygen Saturation 98% 05/29/2024 9:30 AM MARKETING PROPOSAL SPECIALIST Inhaled Oxygen Concentration - - Weight 97.7 kg (215 lb 6.4 oz) 05/29/2024 9:30 A M MARKETING PROPOSAL SPECIALIST Height 182.9 cm (6') 05/29/2024 9:30 AM MARKETING PROPOSAL SPECIALIST Body Mass Index 29.21 05/29/2024 9:30 AM MARKETING PROPOSAL SPECIALIST Plan of Treatment Upcoming Encounters Date Type Department Care Team (Late st Contact Info) Description 07/08/2024 9:00 AM MARKETING PROPOSAL SPECIALIST Office Visit [facility] [address] [place] [address] [facility] Cande, REFRACTORY WORKER [address] [place] [address] [address] [place] [phone] 07/20/2024 1:20 PM CDT Office Visit [address] [place] [address] John Kevin MD [address] [place] [address] [address] [place] [address] 10/01/2024 10:00 AM CDT Office Visit [address] [place] [address] John Kevin MD [address] [place] [address] [address] [place] [phone] Health Maintenance Due Date Last Done Comments HEPATITIS B VACCINES (1 of 3 - 19+ 3-dose series) 1990 FIT-DNA Q 3 years 2016 FIT/FOBT Q 1 year 2016 Flex Sig/CT Colonography Q 5 years 2016 ZOSTER VACCINE (1 of 2) 2021 Pre-Diabetes and Diabetes Screening 11/17/2026 11/18/2023, 03/18/2023, 08/13/2022, Additional history exists DTAP/TDAP/TD VACCINES (3 - T d or Tdap) 02/18/2028 02/17/2018, 07/22/2008 COLORECTAL SCREENING 10/31/2028 11/01/2023, 11/01/19 24 Colorectal Cancer Screening 10/31/2028 INFLUENZA VACCINE Completed 05/29/2024 Preventative Visit- Commercial Completed 0 05/29/2024, 09/16/2023, 08/14/2022, Additional history exists Medical Devices Implanted Type Area Cake Icer Device Identifier Shelf Expiration Date Model / Serial / Lot Endo Clip Ii 10mm [id number] - [id number] Implanted:Qty: 1 on 06/22/2019 by Elmo Fontenot MD at [facility] Clip N/A: Abdomen MEDTRONIC - COVIDIEN 03/12/2024 [id number] / / [id number] Procedures Procedure Name Priority Date/Time Associated Diagnosis Comments XR CHEST PA OR AP 1 VW Routine 05/31/2024 5:24 PM MARKETING PROPOSAL SPECIALIST C-PEPTIDE Routine 05/29/2024 10:55 AM MARKETING PROPOSAL SPECIALIST Type 2 diabetes mellitus with hyperglycemia, with long-term current use of insulin ([facility]) VITAMIN B12 LEVEL Routine 05/29/2024 10: 55 AM MARKETING PROPOSAL SPECIALIST Vitamin B12 deficiency (non anemic) VITAMIN D 25 HYDROXY Routine 05/29/2024 10:55 AM MARKETING PROPOSAL SPECIALIST Vitamin D deficiency TSH Routine 05/29/2024 10:55 AM MARKETING PROPOSAL SPECIALIST Mixed hyperlipidemia LIPID PANEL Routine 05/29/2024 10:55 AM MARKETING PROPOSAL SPECIALIST Mixed hyperlipidemia COMPREHENSIVE METABOLIC PANEL Routine 05/29/2024 10:55 AM MARKETING PROPOSAL SPECIALIST Mixed hyperlipidemia CBC WITH DIFFERENTIAL Routine 05/29/2024 10:55 AM MARKETING PROPOSAL SPECIALIST Vitamin B12 deficiency (non anemic) PSA Routine 05/28/2024 11:14 AM MARKETING PROPOSAL SPECIALIST Urinary frequency URINALYSIS WITH REFLEX CULTURE Routine 05/28/2024 11:12 AM MARKETING PROPOSAL SPECIALIST Urinary frequency HEMOGLOBIN A1C Routine 11/18/2023 11:16 AM CDT Prediabetes COLONOSCOPY REPORT 11/01/2023 11 :48 AM CDT from Last 3 Months or Most Recently Relevant to Health Maintenance Results * XR CHEST PA OR AP 1 VW (05/31/2024 5:24 PM MARKETING PROPOSAL SPECIALIST) Anatomical Region Laterality Modality Chest Other us Abstract Provider DIAGNOSTIC IMAGING ORDERABLES Edited Result - Final * (ABNORMAL) CBC WITH DIFFERENTIAL (05/29/2024 10:55 AM MARKETING PROPOSAL SPECIALIST) WBC 7.9 3.8 - 10.8 Thousand/ uL [facility] RBC 5.74 4.20 - 5.80 Million/u L [facility] HEMOGLOBIN 17.1 13.2 - 17.1 g/dL [facility] HEMATOCRIT 51.0(H) 38.5 - 50.0 % [facility] MCV 88.9 80.0 - 100.0 fL [facility] MCH 29.8 27.0 - 33.0 pg [facility] MCHC 33.5 32.0 - 36.0 g/dL [facility] Comment: For adults, a slight decrease in the calculated MCHC value (in the range of 30 to 32 g/dL) is most likely not clinically significant; however, it should be interpreted with caution in correlation with other red cell parameters and the patient's clinical condition. RDW 12.3 11.0 - 15.0 % [facility] PLATELETS 280 140 - 400 Thousand/ uL [facility] MPV 10.9 7.5 - 12.5 fL [facility] NEUTROPHIL ABSOLUTE 5,135 1,500 - 7,800 cells/uL [facility] LYMPHOCYTE ABSOLUTE 2,030 850 - 3,900 cells/uL [facility] MONOCYTE ABSOLUTE 577 200 - 950 cells/uL [facility] EOSINOPHIL ABSOLUTE 79 15 - 500 cells/uL [facility] BASOPHILS ABSOLUTE 79 0 - 200 cells/uL [facility] NEUTROPHIL 65 % [facility] LYMPHOCYTES 25.7 % [facility] MONOCYTE 7.3 % [facility] EOSINOPHILS 1.0 % [facility] BASOPHILS 1.0 % [facility] Comment: FASTING:YES FASTING: YES Test Performed at: [facility] [address] [phone] LauraTamra Moore Blood 05/29/2024 10:5 5 AM MARKETING PROPOSAL SPECIALIST 05/29/2024 10:56 AM MARKETING PROPOSAL SPECIALIST us John Kevin MD HEMATOLOGY ORDERABLES Final R esult [facility] [phone] [facility] [address] [place] [address] * VITAMIN D 25 HYDROXY (05/29/2024 10:55 AM MARKETING PROPOSAL SPECIALIST) VITAMIN D, 25 OH, TOTAL 35 30 - 100 ng/mL [facility] Comment: Vitamin D Status ? 25-OH Vitamin D: Deficiency: ?<20 ng/mL Insufficiency: ? 20 - 29 ng/mL Optimal: ? > or = 30 ng/mL For 25-OH Vitamin D testing on patients on D2-supplementation and patients for whom quantitation of D2 and D3 fractions is required, the Quest[facility]ure[facility](TM) 25-OH VIT D, (D2,D3), LC/MS/MS is recommended: order code 15379 (patients >2yrs). See Note 1 Note 1 For additional information, please refer to http://education.LensVector/faq/RGW914 (This link is being provided for informational/ educational purposes only.) FASTING:YES FASTING: YES Test Performed at: [facility] [address] [place] ??[phone] Yobani Moore MD Blood 05/29/2024 10:5 5 AM MARKETING PROPOSAL SPECIALIST 05/29/2024 10:56 AM MARKETING PROPOSAL SPECIALIST John Kevin MD CHEMISTRY ORDERABLES Final Re sult [facility] [phone] [facility] [address] [place] [phone] * C-PEPTIDE (05/29/2024 10:55 AM MARKETING PROPOSAL SPECIALIST) C-PEPTIDE 2.02 0.80 - 3.85 ng/mL [facility] Comment: Test Performed at: [facility] [address] [place] [address] ??[phone] Yobani Moore MD Blood 05/29/2024 10:5 5 AM MARKETING PROPOSAL SPECIALIST 05/29/2024 10:56 AM MARKETING PROPOSAL SPECIALIST us John Kevin MD CHEMISTRY ORDERABLES Final Re sult Performing Organization Address [facility] [[email or web address]] Co de Phone Number [facility] [phone] [facility] [address] [place] [phone] * TSH (05/29/2024 10:55 AM MARKETING PROPOSAL SPECIALIST) TSH 1.24 0.40 - 4.50 mIU/L [facility] Comment: FASTING:YES FASTING: YES Test Performed at: [facility] [address] [place] ??[phone] Yobani Moore Blood 05/29/2024 10:5 5 AM MARKETING PROPOSAL SPECIALIST 05/29/2024 10:56 AM MARKETING PROPOSAL SPECIALIST John Kevin MD CHEMISTRY ORDERABLES Final Re sult [facility] [phone] [facility] [address] [place] [phone] * VITAMIN B12 LEVEL (05/29/2024 10:55 AM MARKETING PROPOSAL SPECIALIST) VITAMIN B12 719 200 - 1100 pg/mL [facility] Comment: Test Performed at: [facility] [address] [place] ??[phone] Yobani Moore MD Blood 05/29/2024 10:5 5 AM MARKETING PROPOSAL SPECIALIST 05/29/2024 10:56 AM MARKETING PROPOSAL SPECIALIST us John Kevin MD CHEMISTRY ORDERABLES Final Re sult [facility] [phone] [facility] [address] [place] [address] * (ABNORMAL) LIPID PANEL (05/29/2024 10:55 AM MARKETING PROPOSAL SPECIALIST) [facility] CHOLESTEROL 170 <200 mg/dL [facility] HDL 34(L) > OR = 40 mg/dL [facility] TRIGLYCERIDE 463(H) <150 mg/dL [facility] Comment: If a non-fasting specimen was collected, consider repeat triglyceride testing on a fasting specimen if clinically indicated. Shameka et al. J. of Clin. Lipidol. 2015;9:129-169. LDL CALCULATED mg/dL (calc) [facility] Comment: LDL cholesterol not calculated. Triglyceride levels greater than 400 mg/dL invalidate calculated LDL results. Reference range: <100 Desirable range <100 mg/dL for primary prevention; ?? <70 mg/dL for patients with CHD or diabetic patients with > or = 2 CHD risk factors. LDL-C is now calculated using the Ryder-Dayna calculation, which is a validated novel method providing better accuracy than the Friedewald equation in the estimation of LDL-C. Ryder MEJIA et al. NATALYA. 2013;310(19): 9908-7972 (http://education.LensVector/faq/UXF246) CHOL/HDL RATIO 5.0(H) <5.0 (calc) [facility] NON-HDL CHOLESTEROL 136(H) <130 mg/dL (calc) [facility] Comment: For patients with diabetes plus 1 major ASCVD risk factor, treating to a non-HDL-C goal of <100 mg/dL (LDL-C of <70 mg/dL) is considered a therapeutic option. Test Performed at: [facility] [address] [place] ??[phone] Yobani Moore Blood 05/29/2024 10:5 5 AM MARKETING PROPOSAL SPECIALIST 05/29/2024 10:56 AM MARKETING PROPOSAL SPECIALIST us John Kevin MD CHEMISTRY ORDERABLES Final Re sult [facility] [phone] [facility] [address] [place] [phone] * (ABNORMAL) COMPREHENSIVE METABOLIC PANEL (05/29/2024 10:55 AM MARKETING PROPOSAL SPECIALIST) GLUCOSE 332(H) 65 - 99 mg/dL [facility] Comment: ? Fasting reference interval For someone without known diabetes, a glucose value >125 mg/dL indicates that they may have diabetes and this should be confirmed with a follow-up test. BUN 14 7 - 25 mg/dL [facility] CREATININE 1.10 0.70 - 1.30 mg/dL [facility] GFR 80 > OR = 60 mL/min/1. 73m2 [facility] BUN/CREAT RATIO SEE NOTE: 6 - 22 (calc) [facility] Comment: ?? Not Reported: BUN and Creatinine are within ?? reference range. ? SODIUM 134(L) 135 - 146 mmol/L [facility] POTASSIUM 4.5 3.5 - 5.3 mmol/L [facility] CHLORIDE 97(L) 98 - 110 mmol/L [facility] CO2 28 20 - 32 mmol/L [facility] CALCIUM 9.5 8.6 - 10.3 mg/dL [facility] TOTAL PROTEIN 7.3 6.1 - 8.1 g/dL [facility] ALBUMIN 5.1 3.6 - 5.1 g/dL [facility] GLOBULIN 2.2 1.9 - 3.7 g/dL (calc) [facility] ALBUMIN/GLOBULIN RATIO 2.3 1.0 - 2.5 (calc) [facility] BILIRUBIN TOTAL 1.4(H) 0.2 - 1.2 mg/dL [facility] ALKALINE PHOSPHATASE 87 35 - 144 U/L [facility] AST 26 10 - 35 U/L [facility] ALT 37 9 - 46 U/L [facility] Comment: Test Performed at: [facility] [address] [place], [place] ??[phone] Yobani Moore Blood 05/29/2024 10:5 5 AM MARKETING PROPOSAL SPECIALIST 05/29/2024 10:56 AM MARKETING PROPOSAL SPECIALIST John Kevin MD CHEMISTRY ORDERABLES Final Re sult [facility] [phone] [place] [address] [place] [address] * PSA (05/28/2024 11:14 AM MARKETING PROPOSAL SPECIALIST) PSA 1.20 < OR = 4.00 ng/mL [facility] Comment: The total PSA value from this assay system is standardized against the WHO standard. The test result will be approximately 20% lower when compared to the equimolar-standardized total PSA (Lauryn Rupali). Comparison of serial PSA results should be interpreted with this fact in mind. This test was performed using the Siemens chemiluminescent method. Values obtained from different assay methods cannot be used interchangeably. PSA levels, regardless of value, should not be interpreted as absolute evidence of the presence or absence of disease. Test Performed at: [facility] [address] [place] ??[phone] Yobani Moore MD Blood 05/28/2024 11:1 4 AM MARKETING PROPOSAL SPECIALIST 05/28/2024 11:15 AM MARKETING PROPOSAL SPECIALIST John Kevin MD CHEMISTRY ORDERABLES Final Re sult [facility] [phone] [facility] [address] [place] [address] * (ABNORMAL) URINALYSIS WITH REFLEX CULTURE (05/28/2024 11:12 AM MARKETING PROPOSAL SPECIALIST) COLOR UA YELLOW YELLOW [facility] CLARITY UA CLEAR CLEAR [facility] SPECIFIC GRAVITY UA > OR = 1.045(A) 1.001 - 1.035 [facility] PH UA 5.5 5.0 - 8.0 [facility] GLUCOSE UA 3+(A) NEGATIVE [facility] BILIRUBIN UA NEGATIVE NEGATIVE [facility] KETONES UA 1+(A) NEGATIVE [facility] BLOOD UA NEGATIVE NEGATIVE [facility] PROTEIN UA NEGATIVE NEGATIVE [facility] NITRITE UA NEGATIVE NEGATIVE [facility] LEUKOCYTE ESTERASE UA NEGATIVE NEGATIVE [facility] WBC UA NONE SEEN < OR = 5 /HPF [facility] RBC UA NONE SEEN < OR = 2 /HPF [facility] EPITHELIAL CELLS, URINE NONE SEEN < OR = 5 /HPF [facility] BACTERIA UA NONE SEEN NONE SEEN /HPF [facility] HYALINE CAST NONE SEEN NONE SEEN /LPF [facility] URINE NOTE [facility] Comment: This urine was analyzed for the presence of WBC, RBC, bacteria, casts, and other formed elements. Only those elements seen were reported. URINE CULTURE [facility] Comment: NO CULTURE INDICATED FASTING:NO FASTING: NO Test Performed at: [facility] [address] [phone] [facility] Urine URINE SPECIMEN OBTAINED BY CLEAN CATCH PROCEDURE / Unknown 05/28/2024 11:12 AM MARKETING PROPOSAL SPECIALIST 05/28/2024 11:13 AM MARKETING PROPOSAL SPECIALIST John Kevin MD URINE ORDERABLES Final Result [facility] [phone] [place] [address] [place] [phone] * (ABNORMAL) HEMOGLOBIN A1C (11/18/2023 11:16 AM CDT) HEMOGLOBIN A1C 6.2(H) <5.7 % of total Hgb [facility] Comment: For someone without known diabetes, a hemoglobin A1c value between 5.7% and 6.4% is consistent with prediabetes and should be confirmed with a follow-up test. For someone with known diabetes, a value <7% indicates that their diabetes is well controlled. A1c targets should be individualized based on duration of diabetes, age, comorbid conditions, and other considerations. This assay result is consistent with an increased risk of diabetes. Currently, no consensus exists regarding use of hemoglobin A1c for diagnosis of diabetes for children. ESTIMATED AVERAGE GLUCOSE (MG/DL) 131 mg/dL [facility] ESTIMATED AVERAGE GLUCOSE (MMOL/L) 7.3 mmol/L [facility] Comment: ? This test was performed on the Shawn zeina c503 platform. Effective 07/29/23, a change in test platforms from the [employer] to the Shawn zeina c503 may have shifted HbA1c results compared to historical results. Based on laboratory validation testing conducted at [employer], the [employer] platform relative to the [employer] platform had an average increase in HbA1c value of < or = 0.3%. This difference is within accepted variability established by the National Glycohemoglobin Standardization Program. Note that not all individuals will have had a shift in their results and direct comparisons between historical and current results for testing conducted on different platforms is not recommended. FASTING:YES FASTING: YES Test Performed at: [facility] [address] [place] ??[phone] LauraMargaritaSima Thomas Blood 11/18/2023 11:1 6 AM CDT 11/18/2023 11:17 AM CDT us John Kevin MD CHEMISTRY ORDERABLES Final Re sult [facility] [phone] [facility] [address] [place] [address] * COLONOSCOPY REPORT (11/01/2023 11:48 AM CDT) Narrative Procedure Note Shantel Hein DO - 11/01/2023 11:48 AM CDT [facility] Patient Name: Macario Pastrana Procedure Date: 11/01/2023 Date of : 1970 Age: 53 Attending MD: Shantel Hein DO, Procedure: Colonoscopy Indications: Screening for colorectal malignant neoplasm, This is the patient's first colonoscopy. PGM with hx colon cancer. No other known family history of CRC or advanced polyp. Providers: Shantel Hein DO Referring MD: John Kevin MD Medicines: Monitored Anesthesia Care Procedure: Informed consent was obtained for the procedure, including moderate sedation after risks were discussed. Based on the pre-procedure assessment, including review of the patient's medical history, medications, allergies, and review of systems, the patient was deemed to be an appropriate candidate for sedation. A timeout was performed. Continuous ECG monitoring, pulse oximetry, blood pressure monitoring, and direct observation were performed. The Colonoscope was introduced through the anus and advanced to the terminal ileum, with identification of the appendiceal orifice and IC valve. The colonoscopy was performed without difficulty. The patient tolerated the procedure well. The quality of the bowel preparation was good. The quality of the bowel preparation was evaluated using the BBPS (Keyes Bowel Preparation Scale) with scores of: Right Colon = 2 (minor amount of residual staining, small fragments of stool and/or opaque liquid, but mucosa seen well), Transverse Colon = 3 (entire mucosa seen well with no residual staining, small fragments of stool or opaque liquid) and Left Colon = 3 (entire mucosa seen well with no residual staining, small fragments of stool or opaque liquid). The total BBPS score equals 8. The terminal ileum, ileocecal valve, appendiceal orifice, and rectum were photographed. Estimated Blood Loss: Estimated blood loss was minimal. Findings: The terminal ileum appeared normal. A 5 mm polyp was found in the descending colon. The polyp was sessile. The polyp was removed with a cold snare. Resection and retrieval were complete. Three sessile polyps were found in the rectum. The polyps were 2 to 3 mm in size. These polyps were removed with a cold snare. Resection and retrieval were complete. Internal hemorrhoids were found during retroflexion. The hemorrhoids were small. The exam was otherwise without abnormality on direct and retroflexion views. Complications: No immediate complications. Impression: - The examined portion of the ileum was normal. - One 5 mm polyp in the descending colon, removed with a cold snare. Resected and retrieved. - Three 2 to 3 mm polyps in the rectum, removed with a cold snare. Resected and retrieved. - Internal hemorrhoids. - The examination was otherwise normal on direct and retroflexion views. Recommendation: - Discharge patient to home. - High fiber diet. - Await pathology results. - Repeat colonoscopy for surveillance based on pathology results. - Return to primary care physician as previously scheduled. - Your pathology results typically return within 3-5 business days. You may receive an email/[facility] notification that results are back. However, this does not mean that the physician has reviewed them yet. It will typically take 5-7 business days for the physician to review the results. We will notify you of the results once the physician has had a chance to review them. If you have not received results from the physician's office within 10 business days from the procedure, then please contact us at that point. Shantel Hein DO 11/01/2023 11:48:08 AM Number of Addenda: 0 Procedure Date: 11/01/2023 10:43:02 AM [address] [place] [address] Shantel Hein DO GI PROCEDURE ORDERABLES Final Re sult from Last 3 Months or Most Recently Relevant to Health Maintenance Insurance [place] [id number] [place] [id number] Advance Directives For more information, please contact: [phone] * Full Code (Latest Code Status on File) Date Activated Date Inactivated Comments 11/01/2023 10:22 AM 11/01/2023 2:12 PM * Full Code Date Activated Date Inactivated Comments 06/22/2019 2:37 PM 06/22/2019 7:02 PM * Full Code Date Activated Date Inactivated Comments 06/22/2019 12:12 PM 06/22/2019 2:37 PM * Full Code Date Activated Date Inactivated Comments 06/22/2019 12:08 PM 06/22/2019 12:12 PM Care Teams Filter Tender Relationship Specialty Start Date End Date John Kevin MD [address] [place] [address] PCP - General 08/18/03
--- OUTSIDE RECORDS SUMMARY | 2024-06-04 09:52 | XMS_ITS | Encounter Summary ---
Author Organization [facility] Address [address] [place] [address] Care Team Providers Care Gravity Flow Irrigator Name Role Phone John Kevin MD Primary Care Provider [phone] Encounter Details Date Type Department Care Team (Late st Contact Info) Description 08/25/2003 Outpatient Historical [facility] Internal Medicine [address] [address] John Kevin MD 637 [facility] [address] [place] [address] Social History Tobacco Use Types Packs/Day Years Used Date Smoking Tobacco: Never Assessed Sex and Gender Information Value Date Recorded Sex Assigned at Not on file Legal Sex Male 2:58 AM APPLICATION DEVELOPMENT DIRECTOR Gender Identity Not on file Sexual Orientation Not on file documented as of this encounter Last Filed Vital Signs Vital Sign Reading Time Taken Comments Blood Pressure 120/80 08/25/2003 4:30 PM CDT Pulse - - Temperature - - Respiratory Rate - - Oxygen Saturation - - Inhaled Oxygen Concentration - - Weight 83.5 kg (184 lb) 08/25/2003 4:30 PM CDT Height - - Body Mass Index - - documented in this encounter Plan of Treatment Upcoming Encounters Date Type Department Care Team (Late st Contact Info) Description 07/08/2024 9:00 AM APPLICATION DEVELOPMENT DIRECTOR Office Visit [facility] Diabetes Care [facility] 637 [facility] [address] [place] [address] RjLizett FNP 637 [facility] [address] [place] [address] 07/20/2024 1:20 PM CDT Office Visit [address] [place] [address] [place] [phone] John Kevin MD [address] [place] [address] [place] [address] 10/01/2024 10:00 AM CDT Office Visit [address] [place] [address] [place] [address] John Kevin MD [address] [place] [address] [place] [address] documented as of this encounter Visit Diagnoses Not on filedocumented in this encounter Care Teams Gravity Flow Irrigator Relationship Specialty Start Date End Date John Kevin MD [address] [place] [address] [place] [address] PCP - General 08/18/03 documented as of this encounter
--- OUTSIDE RECORDS SUMMARY | 2024-06-04 09:52 | XMS_ITS | Encounter Summary ---
Author Organization [facility] Address [address] [place] [address] Care Team Providers Care Laundrette Owner Name Role Phone John Kevin MD Primary Care Provider [phone] Encounter Details Date Type Department Care Team (Late st Contact Info) Description 12/27/2003 Outpatient Historical [facility] Internal Medicine [address] [address] John Kevin MD 637 [facility] [address] [place] [address] Social History Tobacco Use Types Packs/Day Years Used Date Smoking Tobacco: Never Assessed Sex and Gender Information Value Date Recorded Sex Assigned at Not on file Legal Sex Male 2:58 AM COMBINE MECHANIC Gender Identity Not on file Sexual Orientation Not on file documented as of this encounter Last Filed Vital Signs Vital Sign Reading Time Taken Comments Blood Pressure 120/70 12/27/2003 2:00 PM CDT Pulse - - Temperature - - Respiratory Rate - - Oxygen Saturation - - Inhaled Oxygen Concentration - - Weight 88.9 kg (196 lb) 12/27/2003 2:00 PM CDT Height - - Body Mass Index - - documented in this encounter Plan of Treatment Upcoming Encounters Date Type Department Care Team (Late st Contact Info) Description 07/08/2024 9:00 AM COMBINE MECHANIC Office Visit [facility] Diabetes Care [facility] 637 [facility] [address] [place] [address] Lizett De La Rosa FNP 637 [facility] [address] [place] [address] 07/20/2024 1:20 PM CDT Office Visit [address] [place] [address] [place] [phone] John Kevin MD [address] [place] [address] [place] [address] 10/01/2024 10:00 AM CDT Office Visit [address] [place] [address] [place] [phone] John Kevin MD [address] [place] [address] [place] [address] documented as of this encounter Visit Diagnoses Not on filedocumented in this encounter Care Teams Laundrette Owner Relationship Specialty Start Date End Date John Kevin MD [address] [place] [address] [place] [phone] PCP - General 08/18/03 documented as of this encounter
--- OUTSIDE RECORDS SUMMARY | 2024-06-04 09:52 | XMS_ITS | Encounter Summary ---
Author Organization [facility] Address [address] [place] [address] Care Team Providers Care Knocker Out Name Role Phone John Kevin MD Primary Care Provider [phone] Encounter Details Date Type Department Care Team (Late st Contact Info) Description 03/18/2007 Outpatient Historical [facility] Internal Medicine [address] [address] John Kevin MD [address] [place] [address] [address] [place] [address] Social History Tobacco Use Types Packs/Day Years Used Date Smoking Tobacco: Never Assessed Sex and Gender Information Value Date Recorded Sex Assigned at Not on file Legal Sex Male 2:58 AM COMPOSING MACHINE OPERATOR Gender Identity Not on file Sexual Orientation Not on file documented as of this encounter Plan of Treatment Upcoming Encounters Date Type Department Care Team (Late Contact Info) Description 07/08/2024 9:00 AM COMPOSING MACHINE OPERATOR Office Visit [facility] Diabetes Care [address] [place] [address] [place] [address] [facility], [facility] [address] [place] [address] [address] [place] [address] 07/20/2024 1:20 PM CDT Office Visit [facility] Primary Care [facility] [address] [place] [address] [place] [place] [address] John Kevin MD [address] [place] [address] [address] [place] [phone] 10/01/2024 10:00 AM CDT Office Visit [facility] [address] [place] [address] [address] [place] [phone] John Kevin MD [address] [place] [address] [address] [place] [phone] documented as of this encounter Visit Diagnoses Not on filedocumented in this encounter Care Teams Knocker Out Relationship Specialty Start Date End Date John Kevin MD [address] [place] [address] [place] [phone] PCP - General 08/18/03 documented as of this encounter
--- OUTSIDE RECORDS SUMMARY | 2024-06-04 09:52 | XMS_ITS | Encounter Summary ---
Author Organization [facility] Address [address] [place] [address] Care Team Providers Care Surveillance System Monitor Name Role Phone John Kevin MD Primary Care Provider [phone] Reason for Referral * Medication Prior Authorization - Pending Review Specialty Diagnoses / Procedures Referred By Contac t Referred To Contact Diagnoses Type 2 diabetes mellitus with hyperglycemia, with long-term current use of insulin (CMS/HCC) John Kevin MD [address] [place] [phone] Phone: tel: fax: Referral ID Status Reason Start Date Expiration Date V isits Requested Visits Authorized [id number] Pending Review 1 1 ETBALLS AND FOOTBALLS REVERSER Encounter Details Date Type Department Care Team (Late st Contact Info) Description 05/30/2024 Orders Only [facility] Primary Care [address] [address] John Kevin MD [address] [place] [address] Type 2 diabetes mellitus with hyperglycemia, with long-term current use of insulin (CMS/HCC) Social History Tobacco Use Types Packs/Day Years Used Date Smoking Tobacco: Never Passive Smoke Exposure: Never Smokeless Tobacco: Never Alcohol Use Standard Drinks/Week Comments Yes 0 (1 standard drink = 0.6 oz pur e alcohol) occasionally Feeling Safe Answer Date Recorded Are you in a relationship wi th someone who hurts you emotionally and/or physically? No 11/01/2023 Sex and Gender Information Value Date Recorded Sex Assigned at Not on file Legal Sex Male 2:58 AM BASKETBALLS AND FOOTBALLS REVERSER Gender Identity Not on file Sexual Orientation Not on file documented as of this encounter Progress Notes * John Kevin MD - 05/30/2024 9:03 AM CST Spoke with pt Sugars 300 On insulin Pharmacy did not have ozempic--try alt C peptide low normal ok try inc metfomrin tid Inc insulin if sugars stay high reviewed Consider inc lipitor dose wait ETBALLS AND FOOTBALLS REVERSER documented in this encounter Plan of Treatment Upcoming Encounters Date Type Department Care Team (Late st Contact Info) Description 07/08/2024 9:00 AM BASKETBALLS AND FOOTBALLS REVERSER Office Visit [facility] Diabetes [address] [place] [address] [address] [facility], [facility] [address] [place] [address] [place] [address] [place] [address] 07/20/2024 1:20 PM CDT Office Visit [address] [place] [address] [place] [address] John Kevin MD [address] [place] [phone] 10/01/2024 10:00 AM CDT Office Visit [address] [place] [address] [place] [address] John Kevin MD [address] [place] [address] [address] [place] [address] documented as of this encounter Visit Diagnoses Diagnosis Type 2 diabetes mellitus with hyperglycemia, with long-term current use of insulin ([facility]) documented in this encounter Care Teams Surveillance System Monitor Relationship Specialty Start Date End Date John Kevin MD [address] [place] [phone] PCP - General 08/18/03 documented as of this encounter
--- OUTSIDE RECORDS SUMMARY | 2024-06-04 09:52 | XMS_ITS | Encounter Summary ---
Author Organization [facility] Address [address] [place] [address] Care Team Providers Care Lead Electrical Controls Engineer Name Role Phone John Kevin MD Primary Care Provider [phone] Encounter Details Date Type Department Care Team (Late st Contact Info) Description 08/27/2003 Outpatient Historical [facility] Neu[facility] [address] [address] Aaron Wilkinson MD [address] [place] [phone] Social History Tobacco Use Types Packs/Day Years Used Date Smoking Tobacco: Never Assessed Sex and Gender Information Value Date Recorded Sex Assigned at Not on file Legal Sex Male 2:58 AM PROPOSAL WRITER Gender Identity Not on file Sexual Orientation Not on file documented as of this encounter Plan of Treatment Upcoming Encounters Date Type Department Care Team (Late st Contact Info) Description 07/08/2024 9:00 AM PROPOSAL WRITER Office Visit [facility] Diabetes Care [address] [place] [phone] [facility] 637 [facility] [address] [place] [address] 07/20/2024 1:20 PM CDT Office Visit [facility] Primary Care [facility] [address] [place] [address] [address] [place] [address] John Kevin MD 637 [facility] [address] [place] [phone] 10/01/2024 10:00 AM CDT Office Visit [facility] Primary Care [facility] [address] [place] [address] [address] [place] [phone] John Kevin MD [address] [place] [address] [address] [place] [phone] documented as of this encounter Visit Diagnoses Not on filedocumented in this encounter Care Teams Lead Electrical Controls Engineer Relationship Specialty Start Date End Date John Kevin MD [address] [place] [address] [address] [place] [phone] PCP - General 08/18/03 documented as of this encounter
--- OUTSIDE RECORDS SUMMARY | 2024-06-04 09:52 | XMS_ITS | Encounter Summary ---
Author Organization [facility] Address [address] [place] [address] Care Team Providers Care Regular Senior Care Provider Name Role Phone John Kevin MD Primary Care Provider [phone] Encounter Details Date Type Department Care Team (Late Contact Info) Description 09/12/2006 Outpatient Historical [facility] Internal Medicine [address] [address] John Kevin MD [address] [place] [address] [address] [place] [address] Social History Tobacco Use Types Packs/Day Years Used Date Smoking Tobacco: Never Assessed Sex and Gender Information Value Date Recorded Sex Assigned at Not on file Legal Sex Male 2:58 AM SEWING SUPERVISOR Gender Identity Not on file Sexual Orientation Not on file documented as of this encounter Last Filed Vital Signs Vital Sign Reading Time Taken Comments Blood Pressure 112/70 09/12/2006 2:15 PM CDT Pulse - - Temperature 36.2 ??C (97.2 ??F) 09/12/2006 2:15 PM CD T Respiratory Rate - - Oxygen Saturation - - Inhaled Oxygen Concentration - - Weight 84.4 kg (186 lb) 09/12/2006 2:15 PM CDT Height - - Body Mass Index - - documented in this encounter Plan of Treatment Upcoming Encounters Date Type Department Care Team (Late st Contact Info) Description 07/08/2024 9:00 AM SEWING SUPERVISOR Office Visit [facility] Diabetes Care [address] [place] [address] Rj, G[facility] 63 [facility] [address] [place] [phone] 07/20/2024 1:20 PM CDT Office Visit [facility] [address] [place] [address] [address] [place] [phone] John Kevin MD [address] [place] [address] [address] [place] [address] 10/01/2024 10:00 AM CDT Office Visit [facility] [address] [place] [address] [address] [place] [address] John Kevin MD [address] [place] [address] [address] [place] [address] documented as of this encounter Visit Diagnoses Not on filedocumented in this encounter Care Teams Regular Senior Care Provider Relationship Specialty Start Date End Date John Kevin MD [address] [place] [address] [address] [place] [phone] PCP - General 08/18/03 documented as of this encounter
--- OUTSIDE RECORDS SUMMARY | 2024-06-04 09:52 | XMS_ITS | Encounter Summary ---
Author Organization [facility] Address [address] [place] [address] Care Team Providers Care Gerontology Aide Name Role Phone John Kevin MD Primary Care Provider [phone] Encounter Details Date Type Department Care Team (Late st Contact Info) Description 03/18/2007 Outpatient Historical [facility] Internal Medicine [address] [address] John Kevin MD [address] [place] [address] [address] [place] [address] Social History Tobacco Use Types Packs/Day Years Used Date Smoking Tobacco: Never Assessed Sex and Gender Information Value Date Recorded Sex Assigned at Not on file Legal Sex Male 2:58 AM ASSOCIATE PROFESSOR OF ART Gender Identity Not on file Sexual Orientation Not on file documented as of this encounter Plan of Treatment Upcoming Encounters Date Type Department Care Team (Late Contact Info) Description 07/08/2024 9:00 AM ASSOCIATE PROFESSOR OF ART Office Visit [facility] Diabetes Care [address] [place] [address] [place] [address] [facility], [facility] [address] [place] [address] [address] [place] [phone] 07/20/2024 1:20 PM CDT Office Visit [facility] Primary Care [facility] [address] [place] [address] [place] [place] [phone] John Kevin MD [address] [place] [address] [address] [place] [phone] 10/01/2024 10:00 AM CDT Office Visit [facility] Care [facility] [address] [place] [address] [address] [place] [phone] John Kevin MD [address] [place] [address] [address] [place] [phone] documented as of this encounter Visit Diagnoses Not on filedocumented in this encounter Care Teams Gerontology Aide Relationship Specialty Start Date End Date John Kevin MD [address] [place] [address] [place] [phone] PCP - General 08/18/03 documented as of this encounter
--- OUTSIDE RECORDS SUMMARY | 2024-06-04 09:52 | XMS_ITS | Encounter Summary ---
Author Organization Address [address] [place] [address] Care Team Providers Care Garment Sorter Name Role Phone John Kevin MD Primary Care Provider [phone] Encounter Details Date Type Department Care Team (Late st Contact Info) Description 09/27/2006 Outpatient Historical [facility] Internal Medicine [address] [address] John Kevin MD 637 [facility] [address] [place] [address] Social History Tobacco Use Types Packs/Day Years Used Date Smoking Tobacco: Never Assessed Sex and Gender Information Value Date Recorded Sex Assigned at Not on file Legal Sex Male 2:58 AM WASH DRILLER HELPER Gender Identity Not on file Sexual Orientation Not on file documented as of this encounter Last Filed Vital Signs Vital Sign Reading Time Taken Comments Blood Pressure 118/72 09/27/2006 10:45 AM CDT Pulse - - Temperature - - Respiratory Rate - - Oxygen Saturation - - Inhaled Oxygen Concentration - - Weight 81.2 kg (179 lb) 09/27/2006 10:45 AM CDT Height - - Body Mass Index - - documented in this encounter Plan of Treatment Upcoming Encounters Date Type Department Care Team (Late st Contact Info) Description 07/08/2024 9:00 AM WASH DRILLER HELPER Office Visit [facility] Diabetes Care [facility] 637 [facility] [address] [place] [address] Lizett De La Rosa FNP 637 [facility] [address] [place] [address] 07/20/2024 1:20 PM CDT Office Visit [address] [place] [address] [place] [phone] John Kevin MD [address] [place] [address] [place] [address] 10/01/2024 10:00 AM CDT Office Visit [address] [place] [address] [place] [phone] John Kevin MD [address] [place] [address] [place] [address] documented as of this encounter Visit Diagnoses Not on filedocumented in this encounter Care Teams Garment Sorter Relationship Specialty Start Date End Date John Kevin MD [address] [place] [address] [place] [phone] PCP - General 08/18/03 documented as of this encounter
--- OUTSIDE RECORDS SUMMARY | 2024-06-04 09:52 | XMS_ITS | Encounter Summary ---
Author Organization [facility] Address [address] [place] [address] Care Team Providers Care Steel Loader Name Role Phone John Kevin MD Primary Care Provider [phone] Encounter Details Date Type Department Care Team (Late st Contact Info) Description 08/18/2003 Outpatient Historical [facility] STKings Nesbitt MD [address] [facility] Emergency Department [place], [place] [id number] Er, Authorized P NO ADDRESS ON FILE SKIN SENSATION DISTURB (Primary Dx) Social History Tobacco Use Types Packs/Day Years Used Date Smoking Tobacco: Never Assessed Sex and Gender Information Value Date Recorded Sex Assigned at Not on file Legal Sex Male 2:58 AM LIFE ADVISOR Gender Identity Not on file Sexual Orientation Not on file documented as of this encounter Plan of Treatment Upcoming Encounters Date Type Department Care Team (Late st Contact Info) Description 07/08/2024 9:00 AM LIFE ADVISOR Office Visit [facility] Diabetes Care [address] [place] [address] [facility], [facility] [address] [place] [address] [address] [place] [phone] 07/20/2024 1:20 PM CDT Office Visit [facility] Primary Care [facility] [address] [place] [address] [address] [place] [address] John Kevin MD [address] [place] [address] [address] [place] [address] 10/01/2024 10:00 AM CDT Office Visit [facility] Primary Care [address] [place] [address] John Kevin MD [address] [place] [address] [address] [place] [address] documented as of this encounter Visit Diagnoses Diagnosis Disturbance of skin sensation- Primary documented in this encounter Care Teams Steel Loader Relationship Specialty Start Date End Date John Kevin MD [address] [place] [address] [address] [place] [address] PCP - General 08/18/03 documented as of this encounter
--- OUTSIDE RECORDS SUMMARY | 2024-06-04 09:52 | XMS_ITS | Encounter Summary ---
Author Organization [facility] Address [address] [place] [address] Care Team Providers Care Research Nurse Practitioner Name Role Phone John Kevin MD Primary Care Provider [phone] Encounter Details Date Type Department Care Team (Latest Contact Info) Description 11/18/2008 Outpatient Historical [facility], [address] John Kevin MD [address] [place] [address] [address] [place] [address] Unspecified Conjunctivitis; Conjunctivitis Social History Tobacco Use Types Packs/Day Years Used Date Smoking Tobacco: Never Alcohol Use Standard Drinks/Week Comments No 0 (1 standard drink = 0.6 oz pur e alcohol) Sex and Gender Information Value Date Recorded Sex Assigned at Not on file Legal Sex Male 2:58 AM FACS TEACHER Gender Identity Not on file Sexual Orientation Not on file documented as of this encounter Plan of Treatment Upcoming Encounters Date Type Department Care Team (Late st Contact Info) Description 07/08/2024 9:00 AM FACS TEACHER Office Visit [facility] Diabetes Care [facility] [address] [place] [address] [address] [place] [address] [facility], [facility] [address] [facility] [address] [place] [address] 07/20/2024 1:20 PM CDT Office Visit [facility] Primary Care [facility] [address] [place] [address] [address] [place] [address] John Kevin MD [address] [place] [address] [address] [place] [address] 10/01/2024 10:00 AM CDT Office Visit [facility] Primary Care [facility] [address] [facility] [address] [place] [phone] John Kevin MD [address] [facility] [address] [place] [address] documented as of this encounter Procedures Procedure Name Priority Date/Time Associated Diagnosis Comments EYE CULTURE WITH GRAM STAIN Routine 11/18/2008 5:15 PM CDT Conjunctivitis documented in this encounter Results * (ABNORMAL) EYE CULTURE WITH GRAM STAIN (11/18/2008 5:15 PM CDT) FINAL REPORT Very light growth Streptococcus pneumoniae(A) [facility] GRAM STAIN No organisms seen No WBC's seen.(A) [facility] SUSCEPTIBILITY PERFORMED ON STREPTOCOCCUS PNEUMONIAE(A) [facility] Eye, left (os) 11/18/2008 5: 15 PM CDT 11/18/2008 8:39 PM CDT Narrative Organism Antibiotic Method Susceptibility Streptococcus pneumoniae PENICILLIN G E TEST 0.25: Susceptible Streptococcus pneumoniae PENICILLIN G (MENINGITIS) E T EST 0.25: Resistant Streptococcus pneumoniae CEFTRIAXONE E TEST 0.19: Susceptible Streptococcus pneumoniae CEFTRIAXONE (MENINGITIS) E TE ST 0.19: Susceptible Streptococcus pneumoniae ERYTHROMYCIN GUTIÉRREZ-HARKINS Resistant Streptococcus pneumoniae LEVOFLOXACIN GUTIÉRREZ-HARKINS Susceptible Streptococcus pneumoniae TETRACYCLINE GUTIÉRREZ-HARKINS Resistant Streptococcus pneumoniae TRIMETHOPRIM/ SULFAMETHOXAZOLE GUTIÉRREZ-HARKINS Resistant Streptococcus pneumoniae VANCOMYCIN GUTIÉRREZ-HARKINS Susceptible us John Kevin MD MICROBIOLOGY - GENERAL ORDERA BLES Final Result INTERFACE SYSTEM Refer to clinic/hospital department [facility] CLIA# [id number] [address] [place] [address] documented in this encounter Visit Diagnoses Diagnosis Conjunctivitis unspecified Conjunctivitis, unspecified Conjunctivitis Conjunctivitis, unspecified documented in this encounter Care Teams Research Nurse Practitioner Relationship Specialty Start Date End Date John Kevin MD [address] [place] [phone] PCP - General 08/18/03 documented as of this encounter
--- OUTSIDE RECORDS SUMMARY | 2024-06-04 09:52 | XMS_ITS | Encounter Summary ---
Author Organization [facility] Address [address] [place] [address] Care Team Providers Care Service Delivery Manager Name Role Phone John Kevin MD Primary Care Provider Encounter Details Date Type Department Care Team (Late st Contact Info) Description 10/04/2003 Outpatient Historical [facility] Internal Medicine [address] [address] John Kevin MD [address] [facility] [address] [place] [address] Social History Tobacco Use Types Packs/Day Years Used Date Smoking Tobacco: Never Assessed Sex and Gender Information Value Date Recorded Sex Assigned at Not on file Legal Sex Male 2:58 AM MACHINING TECHNICIAN Gender Identity Not on file Sexual Orientation Not on file documented as of this encounter Last Filed Vital Signs Vital Sign Reading Time Taken Comments Blood Pressure 120/82 10/04/2003 4:00 PM CDT Pulse - - Temperature - - Respiratory Rate - - Oxygen Saturation - - Inhaled Oxygen Concentration - - Weight 86.6 kg (191 lb) 10/04/2003 4:00 PM CDT Height - - Body Mass Index - - documented in this encounter Plan of Treatment Upcoming Encounters Date Type Department Care Team (Late st Contact Info) Description 07/08/2024 9:00 AM MACHINING TECHNICIAN Office Visit [facility] Diabetes Care [facility] [address] [facility] [address] [place] [address] Lizett De La Rosa FNP [address] [facility] [address] [place] [address] 07/20/2024 1:20 PM CDT Office Visit [address] [place] [address] [place] [phone] John Kevin MD [address] [place] [address] [place] [phone] 10/01/2024 10:00 AM CDT Office Visit [address] [place] [address] [place] [phone] John Kevin MD [address] [place] [address] [place] [address] documented as of this encounter Visit Diagnoses Not on filedocumented in this encounter Care Teams Service Delivery Manager Relationship Specialty Start Date End Date John Kevin MD [address] [place] [address] [place] [phone] PCP - General 08/18/03 documented as of this encounter
--- OUTSIDE RECORDS SUMMARY | 2024-06-04 09:52 | XMS_ITS | Encounter Summary ---
Author Organization [facility] Address [address] [place] [address] Care Team Providers Care Director Geophysical Laboratory Name Role Phone John Kevin MD Primary Care Provider [phone] Encounter Details Date Type Department Care Team (Late st Contact Info) Description 08/24/2003 [facility] Social History Tobacco Use Types Packs/Day Years Used Date Smoking Tobacco: Never Assessed Sex and Gender Information Value Date Recorded Sex Assigned at Not on file Legal Sex Male 2:58 AM SAMPLE CHECKER Gender Identity Not on file Sexual Orientation Not on file documented as of this encounter Plan of Treatment Upcoming Encounters Date Type Department Care Team (Late st Contact Info) Description 07/08/2024 9:00 AM SAMPLE CHECKER Office Visit [facility] Diabetes Care [address] [place] [place] [address] [facility] Cande, [facility] [address] [place] [address] [address] [place] [address] 07/20/2024 1:20 PM CDT Office Visit [facility] Primary Care [address] [place] [address] John Kevin MD [address] [place] [address] [place] [address] [place] [phone] 10/01/2024 10:00 AM CDT Office Visit [facility] Care [address] [place] [address] John Kevin MD [address] [place] [address] [place] [address] documented as of this encounter Visit Diagnoses Not on filedocumented in this encounter Care Teams Director Geophysical Laboratory Relationship Specialty Start Date End Date John Kevin MD [address] [place] [address] [address] [place] [address] PCP - General 08/18/03 documented as of this encounter
--- OUTSIDE RECORDS SUMMARY | 2024-06-04 09:52 | XMS_ITS | Encounter Summary ---
Author Organization [facility] Address [address] [place] [address] Care Team Providers Care Java Lead Developer Name Role Phone John Kevin MD Primary Care Provider [phone] Encounter Details Date Type Department Care Team (Late st Contact Info) Description 08/16/2003 Outpatient Historical [facility] Internal Medicine [address] [address] Mari Wilkinson MD NO ADDRESS ON FILE Social History Tobacco Use Types Packs/Day Years Used Date Smoking Tobacco: Never Assessed Sex and Gender Information Value Date Recorded Sex Assigned at Not on file Legal Sex Male 2:58 AM CAREER SERVICES MANAGER Gender Identity Not on file Sexual Orientation Not on file documented as of this encounter Last Filed Vital Signs Vital Sign Reading Time Taken Comments Blood Pressure 120/88 08/16/2003 10:45 AM CDT Pulse - - Temperature - - Respiratory Rate - - Oxygen Saturation - - Inhaled Oxygen Concentration - - Weight - - Height - - Body Mass Index - - documented in this encounter Plan of Treatment Upcoming Encounters Date Type Department Care Team (Late st Contact Info) Description 07/08/2024 9:00 AM CAREER SERVICES MANAGER Office Visit [facility]3] Diabetes Care [facility] [address] [place] [address] Lizett De La Rosa FNP [address] [place] [address] 07/20/2024 1:20 PM CDT Office Visit [facility]3] Primary Care [facility] [address] [place] [address] John Kevin MD [address] [place] [address] [address] [place] [phone] 10/01/2024 10:00 AM CDT Office Visit [facility] Care [address] [place] [phone] John Kevin MD [address] [place] [address] [address] [place] [phone] documented as of this encounter Visit Diagnoses Not on filedocumented in this encounter Care Teams Java Lead Developer Relationship Specialty Start Date End Date John Kevin MD [address] [place] [address] [place] [phone] PCP - General 08/18/03 documented as of this encounter
--- OUTSIDE RECORDS SUMMARY | 2024-06-04 09:52 | XMS_ITS | Encounter Summary ---
Author Organization [facility] Address [address] [place] [address] Care Team Providers Care Carpenter Repair Name Role Phone John Kevin MD Primary Care Provider [phone] Encounter Details Date Type Department Care Team (Late Contact Info) Description 07/20/2003 Outpatient Historical [facility] Internal Medicine [address] [address] John Kevin MD 637 [facility] [address] [place] [address] Social History Tobacco Use Types Packs/Day Years Used Date Smoking Tobacco: Never Assessed Sex and Gender Information Value Date Recorded Sex Assigned at Not on file Legal Sex Male 2:58 AM KERRICK KLEANER OPERATOR Gender Identity Not on file Sexual Orientation Not on file documented as of this encounter Last Filed Vital Signs Vital Sign Reading Time Taken Comments Blood Pressure 130/80 07/20/2003 4:15 PM KERRICK KLEANER OPERATOR Pulse - - Temperature 36.9 ??C (98.42 ??F) 07/20/2003 4:[address] Respiratory Rate - - Oxygen Saturation - - Inhaled Oxygen Concentration - - Weight 87.1 kg (192 lb) 07/20/2003 4:15 PM KERRICK KLEANER OPERATOR Height - - Body Mass Index - - documented in this encounter Plan of Treatment Upcoming Encounters Date Type Department Care Team (Late st Contact Info) Description 07/08/2024 9:00 AM KERRICK KLEANER OPERATOR Office Visit [facility] Diabetes Care [facility] [address] [place] [address] [address] [place] [address] Lizett De La Rosa FNP 637 [facility] [address] [place] [phone] 07/20/2024 1:20 PM CDT Office Visit [facility] [address] [place] [address] [address] [place] [phone] John Kevin MD [address] [place] [address] [address] [place] [phone] 10/01/2024 10:00 AM CDT Office Visit [facility] [address] [place] [address] [address] [place] [address] John Kevin MD [address] [place] [address] [place] [phone] documented as of this encounter Visit Diagnoses Not on filedocumented in this encounter Care Teams Carpenter Repair Relationship Specialty Start Date End Date John Kevin MD [address] [place] [address] [address] [place] [phone] PCP - General 08/18/03 documented as of this encounter
--- OUTSIDE RECORDS SUMMARY | 2024-06-04 09:52 | XMS_ITS | Encounter Summary ---
Author Organization Address [address] [place] [address] Care Team Providers Care Steel Fitter Name Role Phone John Kevin MD Primary Care Provider [phone] Encounter Details Date Type Department Care Team (Late Contact Info) Description 01/09/2005 Outpatient Historical [facility] Internal Medicine [address] [address] John Kevin MD 637 [facility] [address] [place] [address] Social History Tobacco Use Types Packs/Day Years Used Date Smoking Tobacco: Never Assessed Sex and Gender Information Value Date Recorded Sex Assigned at Not on file Legal Sex Male 2:58 AM SCREW CUTTER Gender Identity Not on file Sexual Orientation Not on file documented as of this encounter Last Filed Vital Signs Vital Sign Reading Time Taken Comments Blood Pressure 120/86 01/09/2005 4:00 PM CDT Pulse - - Temperature 36.5 ??C (97.7 ??F) 01/09/2005 4:00 PM CD T Respiratory Rate - - Oxygen Saturation - - Inhaled Oxygen Concentration - - Weight 88 kg (194 lb) 01/09/2005 4:00 PM CDT Height - - Body Mass Index - - documented in this encounter Plan of Treatment Upcoming Encounters Date Type Department Care Team (Late Contact Info) Description 07/08/2024 9:00 AM SCREW CUTTER Office Visit [facility] Diabetes Care [facility] [address] [place] [address] [address] [place] [address] Lizett De La Rosa FNP 637 [facility] [address] [place] [phone] 07/20/2024 1:20 PM CDT Office Visit [facility] [address] [place] [address] [address] [place] [phone] John Kevin MD [address] [place] [address] [address] [place] [phone] 10/01/2024 10:00 AM CDT Office Visit [facility] [address] [place] [address] [address] [place] [phone] John Kevin MD [address] [place] [address] [place] [phone] documented as of this encounter Visit Diagnoses Not on filedocumented in this encounter Care Teams Steel Fitter Relationship Specialty Start Date End Date John Kevin MD [address] [place] [address] [address] [place] [phone] PCP - General 08/18/03 documented as of this encounter
--- OUTSIDE RECORDS SUMMARY | 2024-06-04 09:53 | XMS_ITS | Encounter Summary ---
Author Organization [facility] Address [address] [place] [address] Care Team Providers Care Learning And Development Analyst Name Role Phone John Kevin MD Primary Care Provider [phone] Encounter Details Date Type Department Care Team (Late Contact Info) Description 05/20/2003 Outpatient Historical [facility] Internal Medicine [address] [address] John Kevin MD 637 [facility] [address] [place] [address] Social History Tobacco Use Types Packs/Day Years Used Date Smoking Tobacco: Never Assessed Sex and Gender Information Value Date Recorded Sex Assigned at Not on file Legal Sex Male 2:58 AM MORTICIAN INVESTIGATOR Gender Identity Not on file Sexual Orientation Not on file documented as of this encounter Last Filed Vital Signs Vital Sign Reading Time Taken Comments Blood Pressure 130/80 05/20/2003 9:00 AM MORTICIAN INVESTIGATOR Pulse - - Temperature 37.1 ??C (98.8 ??F) 05/20/2003 9:00 AM CS T Respiratory Rate - - Oxygen Saturation - - Inhaled Oxygen Concentration - - Weight 84.4 kg (186 lb) 05/20/2003 9:00 AM MORTICIAN INVESTIGATOR Height - - Body Mass Index - - documented in this encounter Plan of Treatment Upcoming Encounters Date Type Department Care Team (Late st Contact Info) Description 07/08/2024 9:00 AM MORTICIAN INVESTIGATOR Office Visit [facility] Diabetes Care [facility] [address] [place] [address] [address] [place] [address] Lizett De La Rosa FNP [address] [facility] [address] [place] [phone] 07/20/2024 1:20 PM CDT Office Visit [facility] [address] [place] [address] [address] [place] [phone] John Kevin MD [address] [place] [address] [address] [place] [phone] 10/01/2024 10:00 AM CDT Office Visit [facility] [address] [place] [address] [address] [place] [address] John Kevin MD [address] [place] [address] [place] [phone] documented as of this encounter Visit Diagnoses Not on filedocumented in this encounter Care Teams Learning And Development Analyst Relationship Specialty Start Date End Date John Kevin MD [address] [place] [address] [address] [place] [phone] PCP - General 08/18/03 documented as of this encounter
--- OUTSIDE RECORDS SUMMARY | 2024-06-04 09:53 | XMS_ITS | Continuity of Care Document ---
Author Organization [facility] Address [address] [place] [address] [place] [address] Phone Care Team Providers Care Precision Optics Technician Name Role Phone Crystal Garcia MD Unavailable Unavailable Procedures Procedure Date Eye Exam, New Patient Advance Directives Directive Yes / No Effective Date File Name No Information Encounters Encounter Description Practice Location Reason(s) For Visit Diagnoses Date Provider Providers Copied on Encounter [facility], [address] [place] [address] [address], [place], [place], [id number], [place] tel:[phone] [facility] No Information [address] Jose Rojas. [address] [facility], [facility] [place], [address], [place]. tel:[phone] Family History Family Member Type Diagnosis Age At Onset No Information Payers Payer name Insurance type Covered republican ID Authoriza tiglen(s) [facility] Commercial CI [id number] Social History Type Description Quantity Date Captured Comments Sex Male Smoking Status No Information Chief Complaint And Reason For Visit No Information Reason For Referral Reason For Referral No Information History Of Present Illness Encounter Date Complaint History Of Prese nt Illness No Information Functional Status Date Functional Assessmen t No Information Instructions Date Instruction Additional Infor mation No Information Assessments Type Assessment Date No Information Patient Care Teams Name Effective Dates (start - stop) Status Members No Information
--- OUTSIDE RECORDS SUMMARY | 2024-06-04 09:55 | XMS_ITS | Continuity of Care Document ---
Author Organization [facility] Address [address] [place] [address] [place] [address] Phone Care Team Providers Care Commissioner Of Relocation Services Name Role Phone Crystal Garcia MD Unavailable Unavailable Procedures Procedure Date Eye Exam, New Patient Advance Directives Directive Yes / No Effective Date File Name No Information Encounters Encounter Description Practice Location Reason(s) For Visit Diagnoses Date Provider Providers Copied on Encounter [facility], [address] [place] [address] [address], [place], [place], [id number], [place] tel:[phone] [facility] Professional No Information [address] 7 Jose Rojas. [address] [facility], [facility] [place], [address], [place]. tel:[phone] Family History Family Member Type Diagnosis Age At Onset No Information Payers Payer name Insurance type Covered democrat ID Authoriza tiglen(s) [facility] Commercial CI [id number] Social History Type Description Quantity Date Captured [...]
--- OUTSIDE RECORDS SUMMARY | 2024-06-04 09:55 | XMS_ITS | Encounter Summary ---
Author Organization [facility] Address [address] [place] [address] Care Team Providers Care Etcher Machine Name Role Phone John Kevin MD Primary Care Provider [phone] Encounter Details Date Type Department Care Team (Late st Contact Info) Description 07/02/2007 Orders Only [facility] Internal Medicine [address] [address] John Kevin MD [address] [place] [address] Social History Tobacco Use Types Packs/Day Years Used Date Smoking Tobacco: Never Assessed Sex and Gender Information Value Date Recorded Sex Assigned at Not on file Legal Sex Male 2:58 AM TAKER OFF Gender Identity Not on file Sexual Orientation Not on file documented as of this encounter Progress Notes * John Kevin MD - 09/24/2007 2:09 PM CDT TIME:11:15 am PATIENT`S HOME PHONE: PATIENT`S WORK PHONE: PATIENT`S INSURANCE: [facility] WHO TOOK THE CALL: Hilda Mccarthy L GENERAL INFORMATION ALTERNATIVE PHONE NUMBER: [phone] WHO CALLED: Patient`s spouse called. Patient reports no known allergies. PHARMACY NUMBER: [phone] PROBLEMS: CONGESTION: Patient complains of sinus congestion, complains of nasal congestion. The symptoms began approximately 5 days ago. Therapies tried include cold medicine. SECTION 1: REQUESTED ACTION licasl 07/02/07 at 11:17 am: MEDICATION REQUEST: Z-jessica Patient wants medications and can not come in. DOCTOR`S RESPONSE: tracy 07/02/07 at 11:55 am MEDICATIONS: Call in to Pharmacy ZITHROMAX Z-JESSICA ORAL TABLET 250 MG, DIRECTED, 1 Dispensed, status: NEW PRESCRIPTION, 07/02/2007.see if not improved FINAL ACTION: balaji 07/02/07 at 03:01 pm Called pharmacy at 07/02/07 at 03:01 pm. Electronically Signed by: Alicja Simmons on Monday, July 02, 2007 documented in this encounter Plan of Treatment Upcoming Encounters Date Type Department Care Team (Late st Contact Info) Description 07/08/2024 9:00 AM TAKER OFF Office Visit [facility] Diabetes Care [address] [place] [phone] [facility], [facility] [address] [place] [address] [address] [place] [phone] 07/20/2024 1:20 PM CDT Office Visit [facility] [address] [place] [address] [address] [place] [phone] John Kevin MD [address] [place] [address] [address] [place] [address] 10/01/2024 10:00 AM CDT Office Visit [address] [place] [address] John Kevin MD [address] [place] [address] [address] [place] [phone] documented as of this encounter Visit Diagnoses Not on filedocumented in this encounter Care Teams Etcher Machine Relationship Specialty Start Date End Date John Kevin MD [address] [place] [address] [address] [place] [phone] PCP - General 08/18/03 documented as of this encounter
--- OUTSIDE RECORDS SUMMARY | 2024-06-04 09:55 | XMS_ITS | Encounter Summary ---
Author Organization [facility] Address [address] [place] [address] Care Team Providers Care Historic Preservationist Name Role Phone John Kevin MD Primary Care Provider [phone] Encounter Details Date Type Department Care Team (Late st Contact Info) Description 09/01/2003 Outpatient Historical [facility] [place] [address] [place] [address] Aaron Wilkinson MD [address] [place] [id number] Social History Tobacco Use Types Packs/Day Years Used Date Smoking Tobacco: Never Assessed Sex and Gender Information Value Date Recorded Sex Assigned at Not on file Legal Sex Male 2:58 AM EMBROIDERY CUTTER Gender Identity Not on file Sexual Orientation Not on file documented as of this encounter Plan of Treatment Upcoming Encounters Date Type Department Care Team (Late st Contact Info) Description 07/08/2024 9:00 AM EMBROIDERY CUTTER Office Visit [facility] Diabetes Care [address] [place] [address] [facility], [facility] [address] [facility] [address] [place] [address] 07/20/2024 1:20 PM CDT Office Visit [facility] Primary Care [facility] [address] [place] [address] [address] [place] [address] John Kevin MD [address] [place] [address] [address] [place] [phone] 10/01/2024 10:00 AM CDT Office Visit [facility] Primary Care [facility] [address] [place] [address] [address] [place] [phone] John Kevin MD [address] [place] [address] [address] [place] [phone] documented as of this encounter Visit Diagnoses Not on filedocumented in this encounter Care Teams Historic Preservationist Relationship Specialty Start Date End Date John Kevin MD [address] [place] [address] [address] [place] [phone] PCP - General 08/18/03 documented as of this encounter
--- OUTSIDE RECORDS SUMMARY | 2024-06-04 09:55 | XMS_ITS ---
Care Plan - [facility] Created on: June 04, 2024 SCOTTIE BHAT : 1970 Sex: Male Author Organization [facility] Address [address] [place] [address] Phone Care Team Providers Care Lightning Rod Installer Name Role Phone Unavailable Unavailable Unavailable
--- OUTSIDE RECORDS SUMMARY | 2024-06-04 09:55 | XMS_ITS | Encounter Summary ---
Author Organization [facility] Address 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 CHIEF COMPLAINT neck and shoulder pain and heavy perspiration. HISTORY: HISTORY: 272.4-HYPERLIPIDEMIA The patient is somewhat compliant with the low saturated fat diet. The patient`s exercise has increased. 300.00-ANXIETY The condition remains stable. Currently the patient is off all medication. 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 CARDIAC: No chest pain, palpitations, orthopnea, dyspnea on exertion, or paroxysmal nocturnal dyspnea. RESPIRATORY: No dyspnea, cough, hemoptysis or wheezing. : No dysuria or hematuria. GI: No abdominal pain, nausea, vomiting, diarrhea, constipation, melena, or hematochezia. PAST MEDICAL HISTORY: reviewed SOCIAL HISTORY: TOBACCO USE: Has no significant smoking history. DISCUSSED SMOKING: neg. ALCOHOL: Does not give any significant history of alcohol usage. DISCUSSED ALCOHOL: neg. PHYSICAL EXAMINATION: CONSTITUTIONAL: GENERAL APPEARANCE: Healthy appearing patient in no distress. EARS, NOSE, MOUTH AND THROAT: EARS: Tympanic membranes shiny without retraction. Canals unremarkable. Hearing grossly normal. ORAL: Inspection of gums, lips, palate, and teeth normal. No scars, lesions, or masses. Oral mucosaunremarkable with non-inflamed posterior pharynx. NECK/THYROID: Trachea midline. No thyroid enlargement, tenderness, or mass. No supraclavicular or cervical adenopathy. RESPIRATORY: Clear to auscultation and percussion. Normal respiratory effort. CARDIOVASCULAR: CARDIAC: Regular rhythm. No murmurs, rubs, or gallops. ARTERIAL: No aortic bruits. EDEMA/VARICOSITIES OF EXTREMITIES: No edema or varicosities. GASTROINTESTINAL: ABDOMEN: Soft, non-tender, without masses. Bowel sounds active. LIVER/SPLEEN/KIDNEY: No hepatosplenomegaly, tenderness or nodularity. Kidneys not palpable. GENITOURINARY: SCROTUM/CONTENTS: LARGE LEFT VARICOCELE NOTED. PHALLUS: No lesion on glans. Shaft normal. No Peyronie's noted. MUSCULOSKELETAL EXAM: tender trigger pt right upper back no central tenderness SKIN: inflammation both axillae, erythema present OFFICE PROCEDURES: trigger pt injection SKIN CONSENTS/PROCEDURES: An aspiration/injection was recommended. This procedure including risks and potential complications, such as bleeding and infection was explained. The patient understood andwished to proceed with the treatment. The skin was prepared with betadine, a 25 gauge needle was int roduced, no fluid was aspirated, Depo Medrol 40mg was injected (1 ml at 40mg/ml), Marcaine 0.5% wasinjected without epinephrine, The patient tolerated procedure well and there were no complications.Patient was instructed to call if pain, redness, swelling or increased warmth should develop. ASSESSMENT/PLAN: 272.4-HYPERLIPIDEMIA recheck lab, enc diet and exercise 300.00-ANXIETY stable 472.0-RHINITIS, CHRONIC stable, ok otc claritin , refill flonase if needed 705.82-DISORDERS OF SWEAT GLANDS discussed, try med, discussed botox option MEDICATIONS: DRYSOL EXTERNAL SOLUTION 20 %, DIRECTED, 30 Duration/Days Supply, status: NEW PRESCRIPTION, 03/18/2007, Comment: use daily. 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 LAB ORDERS: fasting Order number: [id number] Test Ordered: COMPREHENSIVE METABOLIC PANEL & GFR 1112 Order number: [id number] Test Ordered: LIPID PANEL 1078 Order number: [id number] Test Ordered: TSH 1720 Order number: [id number] Test Ordered: TESTOSTERONE TL/FREE WEAKLY BND 1463 782.1-RASH rx MEDICATIONS: LOTRISONE EXTERNAL CREAME 1-0.05 %, DIRECTED, 45 Dispensed, status: NEW PRESCRIPTION, 03/18/2007. PREVENTIVE COUNSELING The patient was counseled regarding diet, regular sustained exercise for at least 30 minutes 3-4 times per week, testicular self- examination on a monthly basis. Patient Education: Risks, benefits, and possible side effects of medication(s) were reviewed with the patient. RETURN VISIT : Instructed to call if not improving. 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 [facility] [address] [place] [address] [address] [place] [phone] [facility], PLASTIC SURGERY COORDINATOR [address] [place] [address] 07/20/2024 1:20 PM CDT Office Visit [address] [place] [phone] John Kevin MD [address] [place] [address] [address] [place] [phone] 10/01/2024 10:00 AM CDT Office Visit [facility] [address] [place] [address] [address] [place] [phone] John Kevin MD [address] [place] [address] [address] [place] [phone] documented as of this encounter Visit Diagnoses Not on filedocumented in this encounter Care Teams Payroll Bookkeeper Relationship Specialty Start Date End Date John Kevin MD [address] [place] [address] [address] [place] [phone] PCP - General 08/18/03 documented as of this encounter
--- OUTSIDE RECORDS SUMMARY | 2024-06-04 09:55 | XMS_ITS ---
Author Organization [facility] Address [address] [place] [address] Phone Care Team Providers Care Design Engineer Marine Equipment Name Role Phone Unavailable Unavailable Unavailable Plan [...]
== END 2024-05-31 09:41 | disposition home or self-care (01) ==
PROVIDERS: Emergency Provider Emergency Medicine; PCP Internal Medicine
DX: R11.2 Nausea with vomiting, unspecified (principal); K30 Functional dyspepsia; F41.9 Anxiety disorder, unspecified; Z20.822 Contact with and (suspected) exposure to COVID-19; E11.9 Type 2 diabetes mellitus without complications; E78.00 Pure hypercholesterolemia, unspecified; I10 Essential (primary) hypertension; Z79.4 Long term (current) use of insulin; Z79.84 Long term (current) use of oral hypoglycemic drugs; Z79.899 Other long term (current) drug therapy; R94.31 Abnormal electrocardiogram [ECG] [EKG]
CPT/HCPCS: 36415; 71045; 80053; 81003; 82010; 82803; 82948; 83735; 84100; 84484; 85025; 85055; 87637; 93005; 96361; 96374; 96375; 99284; A9270; J2405; J7030